=== PATIENT | male | born 1960 | race Caucasian/White ===

== ENCOUNTER 2024-02-28 16:30 | Inpatient (IN) | payer MEDICARE, SELFPAY ==
[2024-02-28 17:10] VITALS: BMI 43.7
[2024-02-28 18:01] VITALS: BP 135/72; PULSE 62; RESP 20; TEMP 36.6; O2SAT 93
--- NOTE | 2024-02-28 19:55 | HP.PCM_ITS ---
HPI - General General Date of Admission: 02/28/24 Date of Service: 03/02/24 Chief Complaint: Here for rehabilitation. HPI Narrative SAMIR MUÑOZ, is a 63 Male who presents with followin02/24/2024 [facility] ED with low back pain. Chronic low back pain, numbness/tingling from waist down. Numbness bilateral hands, urinary incontinence, multiple falls. Falling daily. Transfer to [facility]. 02/25/2024 Admit to [facility] MRI showed severe stenosis at L4-5 level. 02/25/2024 Ortho performed decompression laminectomy lumbar posterior. 02/26/2024 Pain controlled, Sebastian catheter for urinary retention. PT for acute rehab versus SNF. 02/26/2024 Renal ultrasound negative hydronephrosis. CPAP for LUIS. Zoloft, Seroquel for depression. Flomax, indwelling sebastian catheter for urinary retention 2/2 cauda equina, may take 4-6 months to recover. 02/27/2024 Constipated, enema given. Voiding trial tonight. 02/28/2024 Admit to TCU with debility, here for rehabilitation, strengthening, prior to discharge home alone. [facility] Medical History (Updated 02/28/24 @ 20:[address] Jeremiah Birmingham MD) Transient ischemic attack Obstructive sleep apnea Hyperlipidemia Hypogonadism Hypothyroidism Essential (primary) hypertension Hyperparathyroidism Type 2 diabetes mellitus with hyperglycemia Depression Tobacco abuse Chronic heart failure with preserved ejection fraction (HFpEF) Cauda equina syndrome Low back pain Debility Home Medications ?Medication ?Instructions ?Recorded ?Last Taken ?Type albuterol sulfate 90 mcg/actuation 2 puff inhalation Q6H wheezing 02/28/24 Unknown History aerosol inhaler celecoxib 100 mg capsule 100 mg PO BID inflammation 02/28/24 02/28/24 History cholecalciferol (vitamin D3) 50 50 mcg PO DAILY supplement 02/28/24 02/28/24 History mcg (2,000 unit) capsule colchicine 0.6 mg tablet 0.6 mg PO .hs gout 02/28/24 02/27/24 History cyclobenzaprine 10 mg tablet 10 mg PO TID PRN muscle spasm 02/28/24 02/25/24 History docusate sodium 100 mg capsule 100 mg PO BID constipation 02/28/24 02/28/24 History fluticasone propionate 50 1 spray intranasal BID allergy 02/28/24 Unknown History mcg/actuation nasal spray,suspension folic acid 1 mg tablet 1 mg PO DAILY supplement 02/28/24 Unknown History furosemide 20 mg tablet 20 mg PO DAILY diuretic 02/28/24 02/25/24 History furosemide 40 mg tablet 40 mg PO DAILY diuretic 02/28/24 Unknown History gabapentin 300 mg capsule 600 mg PO BID nerve pain 02/28/24 02/28/24 History levothyroxine 50 mcg tablet 50 mcg PO DAILY thyroid 02/28/24 02/28/24 History montelukast 10 mg tablet 10 mg PO QHS allergies 02/28/24 02/27/24 History mupirocin 2 % topical ointment 1 applic topical BID topical 02/28/24 02/27/24 History oxycodone 5 mg tablet 5 mg PO Q4H PRN pain 02/28/24 02/27/24 History polyethylene glycol 3350 17 17 g PO DAILY PRN constipation 02/28/24 Unknown History gram/dose oral powder (Miralax) quetiapine 25 mg tablet 25 mg PO QHS sleep 02/28/24 02/27/24 History ropinirole 4 mg tablet 4 mg PO QHS tremors 02/28/24 02/27/24 History sertraline 100 mg tablet 200 mg PO DAILY depression 02/28/24 02/28/24 History simethicone 80 mg chewable tablet 80 mg PO Q6H PRN gas 02/28/24 Unknown History (Gas Relief (simethicone)) tamsulosin 0.4 mg capsule 0.4 mg PO QHS urine retention 02/28/24 02/27/24 History thiamine HCl (vitamin B1) 100 mg 100 mg PO DAILY supplement 02/28/24 02/28/24 History tablet Allergy/AdvReac Type Severity Reaction Status Date / Time Seasonal Allergies: Uncoded Allergy Intermediate Itching Verified 02/28/24 17:54 bupropion (From Wellbutrin) Allergy Unknown inolerance Verified 02/28/24 17:54 duloxetine (From Cymbalta) Allergy Unknown Other Verified 02/28/24 17:54 haloperidol (From Haldol) Allergy Unknown intolerance Verified 02/28/24 17:54 Family History (Updated 02/28/24 @ 20:[address] Jeremiah Birmingham MD) Father Myocardial infarction at 38. Mother Osteoarthritis Surgical History (Updated 02/28/24 @ 20:[address] Jeremiah Birmingham MD) History of tonsillectomy and adenoidectomy History of nasal septoplasty History of rotator cuff surgery History of sinus surgery History of foot surgery History of lumpectomy of left breast History of parathyroidectomy History of ankle surgery Social History (Updated 02/28/24 @ 20:[address] Jeremiah Birmingham MD) household members: none Smoking Status: Former smoker Electronic Cigarette Use: with nicotine alcohol intake: former details: Sober. substance use type: former substance user Date of last use: Everything, marijuana and crack/cocaine ROS Constitutional Constitutional: Reports weakness; Denies chills, fever(s) or weight gain ENT HEENT: Denies headache(s), nasal congestion or nasal discharge Cardiovascular Cardiovascular: Denies chest pain or palpitations Respiratory/Chest Respiratory/Chest: Denies cough, excessive phlegm production or shortness of breath with exertion Gastrointestinal Gastrointestinal: Denies abdominal pain, nausea or vomiting Genitourinary Genitourinary: Denies dysuria Musculoskeletal Musculoskeletal: Denies joint pain or joint swelling Integumentary Integumentary: Denies rash or wounds Neurologic Neurologic: Reports weakness; Denies focal weakness, numbness or tingling Psychiatric Psychiatric: Denies anxiety, auditory hallucinations, depression, homicidal ideation or suicidal ideation Vital Signs Vital Signs Vital Signs: 02/28/24 17:10 02/28/24 18:01 Temperature 97.8 F Temperature Source Temporal Pulse Rate 62 Pulse Rhythm Regular Pulse Strength Normal (2+) Respiratory Rate 20 H Respiratory Effort Normal Non-Labored Respiratory Depth Normal Respiratory Pattern Normal Blood Pressure 135/72 H Blood Pressure Mean 93 Blood Pressure Source Monitor Blood Pressure Position Semi-Fowlers Blood Pressure Location Left Arm Pulse Ox 93 Oxygen Delivery Method Nasal Cannula Nasal Cannula Oxygen Flow Rate (L/min) 3 2 Weight Weight: 146.42 kg Body Mass Index (BMI) 43.7 Physical Exam Const alert General Appearance: cooperative HEENT normocephalic Eyes PERRL and EOMs intact bilaterally Neck supple, no JVD and no carotid bruits Resp normal respiratory effort, normal air movement and clear to auscultation bilaterally Cardio regular rate and regular rhythm GI normal to inspection, nondistended, normoactive bowel sounds, non-tender and non-distended Bladder / Kidney Exam: catheter in place urethral Extremity normal capillary refill General Extremity: Negative for edema Skin no rashes or lesions noted General Skin Exam: no breakdown Neuro moves all extremities Neuro Narrative: Weakness all 4 extremities. Motor Exam: general weakness Psych affect normal Appearance: appropriate Results Lab / Micro Data 03/02/24 06:17 03/02/24 06:17 Assessment & Plan Assessment/Plan (1) Debility: (2) Low back pain: (3) Cauda equina syndrome: (4) Chronic heart failure with preserved ejection fraction (HFpEF): (5) Tobacco abuse: (6) Depression: (7) Type 2 diabetes mellitus with hyperglycemia: (8) Hyperparathyroidism: (9) Essential (primary) hypertension: (10) Hypothyroidism: (11) Hypogonadism: (12) Hyperlipidemia: (13) Obstructive sleep apnea: (14) Transient ischemic attack: PLAN: Plan 63 year old male with below past medical history hospitalized for cauda equina syndrome, underwent lumbar posterior decompression laminectomy 02/25/2024, postoperative course complicated by urinary retention requiring sebastian catheter, constipation, admitted to TCU with debility, here for rehabilitation, strengthening, prior to discharge home alone. * Debility - PT/OT. * Pain - Tylenol 1000mg q8, Oxycodone 5mg q4 prn pain (4-10). * Bowel - Miralax 17gm daily, senna/colace 2 tablets bid, Magnesium citrate 300ml daily prn. * Adult immunization - Administer pneumonia vaccine, covid vaccine, flu vaccine as appropriate. * DVT prophylaxis - Lovenox 40mg sc daily. * Asthma - Singulair 10mg daily, Albuterol 2 puffs q4 prn. * Osteoarthritis - Celebrex 100mg bid. * Vitamin D deficiency - D3 50mcg daily. * Gout - Colchicine 0.6m5 qhs. * Muscle spasm - Flexeril 10mg tid prn. * Allergic rhinitis - Flonase 1 spray nasal bid. * Alcohol use - Folic acid 1mg daily, Thiamine 100mg daily. * chronic HFpEF - Fuorsemide 40mg daily. * Neuropathic pain - Gabapentin 600mg bid. * Hypothyroidism - Levothyroxine 50mcg daily. * Skin irritation - Bactroban topical bid. * Depression - Sertraline 200mg daily, Seroquel 25mg qhs, stable chronic ocean transportation intermediary use, GDR not recommended. * Restless leg syndrome - Requip 4mg qhs or formulary equivalent. * Gas - Simethicone 80mg q6 prn. * Urinary retention - Tamsulosin 0.4mg qhs, indwelling sebastian catheter, voiding trials, but if related to cauda equina, may take 4 to 6 months to resolve.
[2024-02-28] MEDS: oxyCODONE 5 MG Tablet PO (21:10)
[2024-02-28 21:30] VITALS: O2SAT 92
[2024-02-28] MEDS: Gabapentin 600 MG Tablet PO (23:05)
[2024-02-28] MEDS: Fluticasone 0.05% 1 SPRAY NASAL.SRY NASAL (23:07)
[2024-02-28] MEDS: Celecoxib 100 MG Capsule PO (23:08)
[2024-02-28] MEDS: Pramipexole Di-HCl 0.5 MG Tablet 1.5 MG PO (23:08)
[2024-02-28] MEDS: Montelukast 10 MG Tablet PO (23:09)
[2024-02-28] MEDS: Senna/Docusate Sodium 1 Tablet 2 TABLET PO (23:10)
[2024-02-28] MEDS: QUEtiapine 25 MG Tablet PO (23:10)
[2024-02-28] MEDS: Tamsulosin HCl 0.4 MG Capsule PO (23:10)
[2024-02-28] MEDS: Colchicine 0.6 MG TABLET PO (23:11)
[2024-02-28] MEDS: Acetaminophen 500 MG Tablet 1000 MG PO (23:12)
[2024-02-28 23:18] VITALS: BP 138/70; PULSE 61
[2024-02-29] MEDS: cycloBENZAPRine HCl 10 MG Tablet PO (02:36)
[2024-02-29] MEDS: Acetaminophen 500 MG Tablet 1000 MG PO ×2 (05:28→22:06)
[2024-02-29] MEDS: Levothyroxine 50 MCG Tablet PO (05:29)
[2024-02-29] MEDS: oxyCODONE 5 MG Tablet PO ×3 (05:39→22:21)
[2024-02-29 05:40] VITALS: O2SAT 92
--- NOTE | 2024-02-29 05:43 | NURSING ---
Addendum entered by Marly Coulter 02/29/24 06:41: Resident would benefit from the side rails on a bariatric bed for improved positioning as w/ current bed BUE dangle over the bed and BLE frequently abduct. Original Note: One vape pen confiscated and placed in med room. Resident informed [facility] is a vape and smoke free facility. Alert and oriented x 2, experiences difficulty identifying place. Will need POA to sign admission papers. Resident would also benefit from a bariatric bed w/ an air mattress to ease positioning and care provided per staff d/t ht, BMI, and pain. Frequently slides down in bed and appeared to have hypnic jerks throughout the night.
[2024-02-29 06:37] LABS: Bedside Glucose 110 mg/dL (74-106)
[2024-02-29] MEDS: Polyethylene Glycol 3350 17 GM PACKET PO (08:06)
[2024-02-29] MEDS: Senna/Docusate Sodium 1 Tablet 2 TABLET PO ×2 (08:07→22:06)
[2024-02-29] MEDS: Folic Acid 1 MG Tablet PO (08:08)
[2024-02-29] MEDS: Sertraline 100 MG Tablet 200 MG PO (08:10)
[2024-02-29] MEDS: Thiamine Hydrochloride 100 MG Tablet PO (08:10)
[2024-02-29] MEDS: Furosemide 40 MG Tablet PO (08:11)
[2024-02-29] MEDS: Celecoxib 100 MG Capsule PO ×2 (08:11→22:07)
[2024-02-29] MEDS: Cholecalciferol (VIT D3) 25 MCG TABLET (1,000 UNITS) 50 MCG PO (08:12)
[2024-02-29] MEDS: Fluticasone 0.05% 1 SPRAY NASAL.SRY NASAL ×2 (08:13→22:07)
[2024-02-29] MEDS: Gabapentin 600 MG Tablet PO ×2 (08:26→22:21)
--- NOTE | 2024-02-29 08:34 | NURSING ---
Order for Bactroban ointment per [facility] is for and open or draining wounds only. Resident does not have any open wounds except surgical incision to low back.
[2024-02-29 08:36] VITALS: BP 115/69; PULSE 62; O2SAT 94
--- NOTE | 2024-02-29 09:04 | NURSING ---
PT SPITTING UP THICK CLEAR PHLEUM AND COUGHING WHEN EATING. PT IS SITTING UP IN BED. ASKED PT IF HE DOES THIS OFTEN,PT STATED NO. SPEECH CONSULT IN.
[2024-02-29 09:19] LABS: Absolute Neutrophil Count 2.8 X10^3/uL (2.0-7.7); Basophil# 0.02 X10^3/uL; Basophil% 0.4 % (0-1); Eosinophil# 0.29 X10^3/uL; Eosinophils% 6.4 % (0-5); Hematocrit 35.2 % (40-54); Hemoglobin 11.3 g/dL (13.0-16.5); Mean Corp Hgb Conc 32.1 g/dL (32-36); Mean Corpuscular Hgb 31.4 pg (27.0-32.0); Mean Corpuscular Volume 97.8 fL (80-94); Monocyte# 0.37 X10^3/uL; Monocyte% 8.1 % (0-10); NRBC Flagged by Analyzer 0 % (0-5); Neutrophil # 2.83 X10^3/uL (2.7-7.7); Neutrophil % 62.2 % (47-70); Platelet Count 112 K/mm3 (150-450); RBC Distribution Width CV 15.1 % (11.6-14.6); RBC Distribution Width SD 54.4 fl (35.1-43.9); White Blood Count 4.6 K/mm3 (4.4-11.0)
[2024-02-29 09:36] LABS: Anion Gap 4 (5-15); BUN 17 mg/dL (7-18); BUN/Creat Ratio 19.9 RATIO (10-20); Calcium,Total 8.3 mg/dL (8.5-10.1); Chloride 104 mmol/L (98-107); Creatinine, Serum 0.85 mg/dL (0.70-1.30); EST Glomerular Filtration Rate 96 mL/min (>60); Est Glom Filt Rate - Afr Amer 116 mL/min (>60); Estimated Creatinine Clearance 128.83 ml/min; Glucose 161 mg/dL (74-106); Sodium Level 140 mmol/L (136-145)
[2024-02-29] MEDS: Enoxaparin 40 MG/0.4 ML Syringe SC (10:54)
[2024-02-29] MEDS: Albuterol IH (6.7 GM) 1 PUFF INHALER 2 PUFF INHALATION ×3 (10:56→22:07)
[2024-02-29] MEDS: Tuberculin,Purif.prot.deriv. 50 TU/ML Vial 0.1 ML ID (11:01)
--- NOTE | 2024-02-29 11:05 | NURSING ---
PT ACTED LIKE HE COULDN'T HOLD A FULL CONVERSATION WITH THIS NURSE AND COULDN'T GRAB ANY THING,THEN PHONE RANG AND PT WOKE RIGHT UP AND GRABBED PHONE AND HAD A FULL CONVERSATION WITH SOME ONE ON OTHER END WITH NO PROBLEM. WILL CONTINUE TO MONITOR. RN AWARE
[2024-02-29 15:00] VITALS: BP 146/72; PULSE 65; RESP 19; TEMP 36.2; O2SAT 98
[2024-02-29] MEDS: QUEtiapine 25 MG Tablet PO (22:06)
[2024-02-29] MEDS: Montelukast 10 MG Tablet PO (22:06)
[2024-02-29] MEDS: Tamsulosin HCl 0.4 MG Capsule PO (22:07)
[2024-02-29] MEDS: Pramipexole Di-HCl 0.5 MG Tablet 1.5 MG PO (22:07)
[2024-02-29] MEDS: Colchicine 0.6 MG TABLET PO (22:07)
[2024-03-01 06:28] LABS: Bedside Glucose 129 mg/dL (74-106)
[2024-03-01] MEDS: Levothyroxine 50 MCG Tablet PO (06:40)
[2024-03-01] MEDS: Enoxaparin 40 MG/0.4 ML Syringe SC (06:40)
[2024-03-01] MEDS: Albuterol IH (6.7 GM) 1 PUFF INHALER 2 PUFF INHALATION ×4 (06:40→21:07)
[2024-03-01] MEDS: Acetaminophen 500 MG Tablet 1000 MG PO ×2 (06:40→14:32)
[2024-03-01] MEDS: Polyethylene Glycol 3350 17 GM PACKET PO (09:23)
[2024-03-01] MEDS: Fluticasone 0.05% 1 SPRAY NASAL.SRY NASAL ×2 (09:23→21:10)
[2024-03-01] MEDS: Sertraline 100 MG Tablet 200 MG PO (09:24)
[2024-03-01] MEDS: Celecoxib 100 MG Capsule PO ×2 (09:25→21:08)
[2024-03-01] MEDS: Folic Acid 1 MG Tablet PO (09:25)
[2024-03-01] MEDS: Thiamine Hydrochloride 100 MG Tablet PO (09:26)
[2024-03-01] MEDS: Furosemide 40 MG Tablet PO (09:26)
[2024-03-01] MEDS: Senna/Docusate Sodium 1 Tablet 2 TABLET PO ×2 (09:27→21:09)
[2024-03-01] MEDS: Cholecalciferol (VIT D3) 25 MCG TABLET (1,000 UNITS) 50 MCG PO (09:29)
[2024-03-01] MEDS: Gabapentin 600 MG Tablet PO ×2 (09:35→21:23)
[2024-03-01 09:37] VITALS: BP 131/63; PULSE 62
--- NOTE | 2024-03-01 11:45 | NURSING ---
THIS NURSE FINISH GIVEN MEDS TO PT AND ASKED PT IF THERE WAS ANY THING ELSE HE NEEDED. PT STATED I NEED TO BE ADJUSTED IN BED. DUE TO PT SIZE THIS NURSE HAD PT PRESS THE CALL COLEMAN AND WHEN ANSWERED PT STATED HE WANTED TO BE ADJUSTED IN BED. THIS NURSE STATED I WOULD BE BACK TO HELP AIDS. THIS NURSE WAS STANDING BY PT DOOR IN [place] I COULD HEAR PT GRUNTING AND THEN STATED AW THAT IS WHAT I WANTED. STEPPED IN ROOM AND ASKED PT IF HE NEEDED BED GIRON,PT STATED NO. AIDS WALKED IN AND PT STATED TO THEM HE HAD A BM. AIDS STARTED TO CLEAN PT UP AND PT STATED OH WAIT SHORTY NOT DONE AID ASKED IF HE WANTED ON BED GIRON TO FINISH AND PT STATED NO AND PRECEDED TO FINISH HAVING A BM WHILE LYING ON HIS SIDE. WHILE CLEANING PT UP PT PHONE RANG AND PT WANT HIS PHONE AND IT WAS GIVEN TO HIM AND PT STATED TO PERSON ON OTHER END HI YA SHORTY GETTING MY BUTT WIPED RIGHT KNOW BUT GO A HEAD I CAN TALK. RN AWARE
[2024-03-01 14:21] VITALS: BP 135/69; PULSE 55; RESP 16; TEMP 36.6; O2SAT 93
[2024-03-01 14:35] VITALS: PULSE 56; RESP 18; O2SAT 93
[2024-03-01] MEDS: Tamsulosin HCl 0.4 MG Capsule PO (21:08)
[2024-03-01] MEDS: Colchicine 0.6 MG TABLET PO (21:08)
[2024-03-01] MEDS: Pramipexole Di-HCl 0.5 MG Tablet 1.5 MG PO (21:09)
[2024-03-01] MEDS: QUEtiapine 25 MG Tablet PO (21:09)
[2024-03-01] MEDS: Montelukast 10 MG Tablet PO (21:10)
[2024-03-01] MEDS: Menthol/Lanolin/Calamine/Znox 113 GM Tube 1 APPLIC TOPICAL (21:23)
[2024-03-01] MEDS: oxyCODONE 5 MG Tablet PO (21:24)
[2024-03-02] MEDS: Enoxaparin 40 MG/0.4 ML Syringe SC (06:06)
[2024-03-02] MEDS: Albuterol IH (6.7 GM) 1 PUFF INHALER 2 PUFF INHALATION ×3 (06:06→23:20)
[2024-03-02] MEDS: Levothyroxine 50 MCG Tablet PO (06:07)
[2024-03-02 06:28] LABS: Bedside Glucose 102 mg/dL (74-106)
[2024-03-02 06:48] LABS: Absolute Neutrophil Count 3.5 X10^3/uL (2.0-7.7); Basophil# 0.02 X10^3/uL; Basophil% 0.4 % (0-1); Eosinophil# 0.33 X10^3/uL; Eosinophils% 6.2 % (0-5); Hematocrit 36.9 % (40-54); Hemoglobin 11.9 g/dL (13.0-16.5); Lymphocyte % 18.7 % (19-41); Mean Corp Hgb Conc 32.2 g/dL (32-36); Mean Corpuscular Hgb 31.2 pg (27.0-32.0); Mean Corpuscular Volume 96.6 fL (80-94); Mean Platelet Vol. 11.4 fl (6.2-12.0); Monocyte# 0.45 X10^3/uL; Monocyte% 8.4 % (0-10); NRBC Flagged by Analyzer 0 % (0-5); Neutrophil # 3.51 X10^3/uL (2.7-7.7); Neutrophil % 65.6 % (47-70); Platelet Count 119 K/mm3 (150-450); RBC Distribution Width SD 52.7 fl (35.1-43.9); Red Blood Count 3.82 M/mm3 (4.6-6.2); White Blood Count 5.4 K/mm3 (4.4-11.0)
[2024-03-02 07:00] LABS: Anion Gap 5 (5-15); BUN 20 mg/dL (7-18); BUN/Creat Ratio 28.4 RATIO (10-20); Calcium,Total 8.7 mg/dL (8.5-10.1); Chloride 104 mmol/L (98-107); EST Glomerular Filtration Rate 119 mL/min (>60); Est Glom Filt Rate - Afr Amer 144 mL/min (>60); Estimated Creatinine Clearance 136.89 ml/min; Glucose 116 mg/dL (74-106); Potassium 3.8 mmol/L (3.5-5.1); Sodium Level 139 mmol/L (136-145)
[2024-03-02 07:52] VITALS: O2SAT 92
[2024-03-02] MEDS: Sertraline 100 MG Tablet 200 MG PO (08:39)
[2024-03-02] MEDS: Celecoxib 100 MG Capsule PO ×2 (08:39→17:30)
[2024-03-02] MEDS: Thiamine Hydrochloride 100 MG Tablet PO (08:40)
[2024-03-02] MEDS: Furosemide 40 MG Tablet PO (08:40)
[2024-03-02] MEDS: Senna/Docusate Sodium 1 Tablet 2 TABLET PO ×2 (08:41→23:22)
[2024-03-02] MEDS: Polyethylene Glycol 3350 17 GM PACKET PO (08:42)
[2024-03-02] MEDS: Cholecalciferol (VIT D3) 25 MCG TABLET (1,000 UNITS) 50 MCG PO (08:43)
[2024-03-02] MEDS: Petrolatum 33% Tube 1 APPLIC TOPICAL ×2 (08:49→23:21)
[2024-03-02] MEDS: Menthol/Lanolin/Calamine/Znox 113 GM Tube 1 APPLIC TOPICAL ×2 (08:49→23:20)
[2024-03-02] MEDS: Gabapentin 600 MG Tablet PO ×2 (08:50→23:27)
[2024-03-02 08:56] VITALS: BP 128/75; PULSE 61; RESP 16; TEMP 36.3; O2SAT 91
--- NOTE | 2024-03-02 10:13 | NURSING ---
Clearance Rep Note; Activity Asset: Alison Carrillo is independent in his choice of daily activities. Per conversation during activity assessment he stated he is unable to attend activities at this time and would prefer in room activities only. He prefers not to have the telecommunication tower technician visits due to him being a Atheist. Staff will remind him of weekly activities and respect his right to say no.
--- NOTE | 2024-03-02 10:17 | NURSING ---
Addendum entered by Morena Figueroa 03/02/24 15:15: Call from Kimberlee who reports patient doesn't need to follow-up until the first week of March. She said the office will call to make appt. She said surgical dressing stays in place 5-7days then should be removed. Can then cover with DSD. Original Note: Left VM with Dr. Rolon's office asking for return call about orders for incision site care and follow-up appt.
[2024-03-02] MEDS: oxyCODONE 5 MG Tablet PO ×3 (10:23→20:15)
--- NOTE | 2024-03-02 11:12 | PHA.CONS_ITS ---
Documented by User: Franny Perez 03/02/24 12:06 TCU RX Drug Regimen Review Subjective/Objective Subjective/Objective: Subjective: TCU Admission. 63 YOM presented to outside ER with lower back pain, transferred to [facility]. Hospitalized for cauda equina syndrome, underwent lumbar posterior decompression laminectomy 02/25/2024, postoperative course complicated by urinary retention requiring sebastian catheter, constipation. Admitted to TCU with debility for strengthening and rehabilitation. Objective: Allergies Seasonal Allergies: Uncoded Allergy (Intermediate, Verified 02/28/24 17:54) Itching bupropion (From Wellbutrin) Allergy (Unknown, Verified 02/28/24 17:54) inolerance duloxetine (From Cymbalta) Allergy (Unknown, Verified 02/28/24 17:54) Other haloperidol (From Haldol) Allergy (Unknown, Verified 02/28/24 17:54) intolerance patient becomes extremely restless. Thrashing in bed. Current Medications Generic Name Dose Route Start Last Admin Trade Name Freq PRN Reason Stop Dose Admin Albuterol Sulfate 2 puff 02/29/24 12:00 03/02/24 06:06 Albuterol Ih (6.7 Gm) 1 Puff Inhaler INHALATION 2 puff 4X/DAY RICKY Administration Albuterol Sulfate 1 puff 02/29/24 08:21 Albuterol Ih (6.7 Gm) 1 Puff Inhaler INHALATION Q4H PRN PRN DYSPNEA/WHEEZING/SOB Calamine/Phenol 1 applic 03/01/24 22:00 03/02/24 08:49 Menthol/Lanolin/Calamine/Znox 113 Gm Tube TOPICAL 1 applic BID RICKY Administration Protocol Celecoxib 100 mg 02/28/24 22:00 03/02/24 08:39 Celecoxib 100 Mg Capsule PO 100 mg BID RICKY Administration Cholecalciferol 50 mcg 02/29/24 10:00 03/02/24 08:43 Cholecalciferol (Vit D3) 25 Mcg Tablet (1,000 Units) PO 50 mcg DAILY RICKY Administration Colchicine 0.6 mg 02/28/24 22:00 03/01/24 21:08 Colchicine 0.6 Mg Tablet PO 03/05/24 22:00 0.6 mg QHS RICKY Administration Cyclobenzaprine HCl 10 mg 02/28/24 18:20 02/29/24 02:36 Cyclobenzaprine Hcl 10 Mg Tablet PO 10 mg TID PRN PRN Administration spasms Enoxaparin Sodium 40 mg 02/29/24 06:00 03/02/24 06:06 Enoxaparin 40 Mg/0.4 Ml Syringe SC 40 mg DAILY@0600 RICKY Administration Fluticasone Propionate 1 spray 02/28/24 22:00 03/02/24 08:39 Fluticasone 0.05% 1 [place] Nasal.Sry NASAL Not Given BID RICKY Folic Acid 1 mg 02/29/24 08:00 03/01/24 09:25 Folic Acid 1 Mg Tablet PO 1 mg DAILYCM RICKY Administration Furosemide 40 mg 02/29/24 10:00 03/02/24 08:40 Furosemide 40 Mg Tablet PO 40 mg DAILY RICKY Administration Protocol Gabapentin 600 mg 02/28/24 22:00 03/02/24 08:50 Gabapentin 600 Mg Tablet PO 600 mg BID RICKY Administration Levothyroxine Sodium 50 mcg 02/29/24 06:00 03/02/24 06:07 Levothyroxine 50 Mcg Tablet PO 50 mcg 0600 RICKY Administration Magnesium Citrate 300 ml 02/28/24 20:24 Magnesium Citrate 300 Ml PO DAILY PRN Constipation Montelukast Sodium 10 mg 02/28/24 22:00 03/01/24 21:10 Montelukast 10 Mg Tablet PO 10 mg QHS [facility] Administration Multi-Ingredient Cream 1 applic 03/01/24 22:00 03/02/24 08:49 Petrolatum 33% Tube TOPICAL 1 applic BID [facility] Administration Protocol Oxycodone HCl 5 mg 02/28/24 20:18 03/02/24 10:23 Oxycodone 5 Mg Tablet PO 5 mg Q4H PRN PRN Administration Pain Score 4-10 or Pre PT/OT Polyethylene Glycol 17 gm 02/29/24 10:00 03/02/24 08:42 Polyethylene Glycol 3350 17 Gm Packet PO 17 gm DAILY RICKY Administration Pramipexole Dihydrochloride 1.5 mg 02/28/24 22:00 03/01/24 21:09 Pramipexole Di-Hcl 0.5 Mg Tablet PO 1.5 mg QHS RICKY Administration Quetiapine Fumarate 25 mg 02/28/24 22:00 03/01/24 21:09 Quetiapine 25 Mg Tablet PO 25 mg QHS RICKY Administration Protocol Senna/Docusate Sodium 2 tablet 02/28/24 22:00 03/02/24 08:41 Senna/Docusate Sodium 1 Tablet PO 2 tablet BID RICKY Administration Sertraline HCl 200 mg 02/29/24 10:00 03/02/24 08:39 Sertraline 100 Mg Tablet PO 200 mg DAILY RICKY Administration Simethicone 160 mg 02/29/24 08:16 Simethicone 80 Mg Chewable Tablet PO Q6H PRN PRN Gas Sodium Chloride 10 - 40 ml 02/28/24 17:23 0.9% Saline Lock 10 Ml Syringe IV UD PRN SALINE FLUSH Tamsulosin HCl 0.4 mg 02/28/24 22:00 03/01/24 21:08 Tamsulosin Hcl 0.4 Mg Capsule PO 0.4 mg QHS RICKY Administration Thiamine HCl 100 mg 02/29/24 08:00 03/02/24 08:40 Thiamine Hydrochloride 100 Mg Tablet PO 100 mg DAILYCM RICKY Administration Tuberculin PPD 0.1 ml 03/07/24 10:00 Tuberculin,Purif.Prot.Deriv. 50 Tu/Ml Vial ID 03/07/24 10:01 X1 ONE Problem List Transient ischemic attack (Acute) Obstructive sleep apnea (Acute) Hyperlipidemia (Acute) Hypogonadism (Acute) Hypothyroidism (Acute) Essential (primary) hypertension (Acute) Hyperparathyroidism (Acute) Type 2 diabetes mellitus with hyperglycemia (Acute) Depression (Acute) Tobacco abuse (Acute) Chronic heart failure with preserved ejection fraction (HFpEF) (Acute) Cauda equina syndrome (Acute) Low back pain (Acute) Debility (Acute) Vital Signs Temp Pulse Resp BP Pulse Ox O2 Del Method O2 Flow Rate 97.4 F L 61 16 128/75 H 91 Room Air 2 03/02/24 08:56 03/02/24 08:56 03/02/24 08:56 03/02/24 08:56 03/02/24 08:56 03/02/24 08:56 02/28/24 18:01 Oxygen Flow Rate (L/min) 2 Oxygen Delivery Method Room Air Weight: 146.42 kg Body Mass Index (BMI) 43.7 Sodium 139 mmol/L (136-145) 03/02/24 06:17 Potassium 3.8 mmol/L (3.5-5.1) 03/02/24 06:17 Chloride 104 mmol/L (98-107) 03/02/24 06:17 Carbon Dioxide 30.0 mmol/L (21.0-32.0) 03/02/24 06:17 Anion Gap 5 (5-15) 03/02/24 06:17 BUN 20 mg/dL (7-18) H 03/02/24 06:17 Creatinine 0.70 mg/dL (0.70-1.30) 03/02/24 06:17 Est GFR (MDRD) Af Amer 144 mL/min (>60) 03/02/24 06:17 Est GFR (MDRD) Non-Af 119 mL/min (>60) 03/02/24 06:17 BUN/Creatinine Ratio 28.4 RATIO (10-20) H 03/02/24 06:17 Glucose 116 mg/dL (74-106) H 03/02/24 06:17 Assessment/Plan: 1. Pain/osteoarthritis: celecoxib 100mg PO BIDCM and oxycodone 5mg PO Q4H PRN pain 4-10. Resident has had 5 doses of oxycodone for pain scores of 7-10 in the back. Please continue to monitor for increased pain, PRN usage, constipation, respiratory depression, S/S of bleeding, renal function and S/S of heart failure (BEERs medication, Celebrex). 2. Bowel: Miralax 17gm PO daily, senna/docusate 2T PO BID and magnesium citrate 300ML PO daily PRN constipation. Resident has not had any PRN doses. Please continue to monitor for constipation and PRN usage. Last documented bowel movement was 03/01. 3. DVT prophylaxis: enoxaparin 40mg SC daily. Please continue to monitor for S/S of bleeding/DVT, hemoglobin (11.9g/dL), platelets (last 119,000) and renal function. 4. HFpEF: furosemide 40mg PO daily. Please continue to monitor for swelling, renal function, potassium (last 3.8mmol/L). 5. Gout: colchicine 0.6mg PO QHS thru 03/05/24. Please continue to monitor for S/S of gout and renal function. 6. Hypothyroidism: levothyroxine 50mcg PO daily. Please consider ordering a TSH level as there is no history in the chart. Thanks. Please continue to monitor for S/S of hypo/hyperthyroidism. 7. Restless leg syndrome: pramipexole 1.5mg PO QHS. Please continue to monitor for S/S of RLS, drowsiness, dizziness and insomnia. 8. Muscle spasms: cyclobenzaprine 10mg PO TID PRN spasms. Resident has had 1 dos e. Please continue to monitor for dementia/delirium (BEERs medication), urinary retention (on Flomax), PRN usage and anticholinergic side effects (BEERs medication). 9. Urinary retention: tamsulosin 0.4mg PO QHS. Please continue to monitor BP (last 128/75) and urinary retention. 10. Gas: simethicone 160mg PO Q6H PRN gas. Resident has not used any doses. Please continue to monitor for PRN usage. 11. Asthma: montelukast 10mg PO daily, albuterol MDI 2 puff inhalation 4x/day and 1puff Q4H PRN dyspnea/wheezing. Resident has not used any PRN doses. Please continue to monitor for S/S of asthma, PRN usage and HR (last 61). 12. Allergic rhinitis: fluticasone 0.05% nasal spray 1 spray nasal BID. Please continue to monitor for S/S of allergies and nasal irritation. 13. Vitamin D deficiency: cholecalciferol 50mcg PO daily. Please consider ordering a vitamin D level as there is no level in the chart. Thanks. 14. Alcohol use: folic acid 1mg PO daily and thiamine 100mg PO daily. Please continue to monitor. 15. Skin irritation: Bactroban topical bid. Assessment/Plan for indications treated with psychotropic medications: 1. Depression: sertraline 200mg PO daily and quetiapine 25mg PO QHS. Please see physician note regarding GDR. Please continue to monitor for suicidal ideation (black box warning), falls/fractures (BEERs medication), dementia/delirium (BEERs medication), sodium (last 139mmol/L), fatigue, weight gain and drowsiness. 2. Neuropathic pain: gabapentin 600mg PO BID. GDR not appropriate as this medication is being used for neuropathy. Please continue to monitor for pain, confusion, renal function and falls/fractures (BEERs medication). Medical chart and medication regimen reviewed. The following medication irregularities or issues were identified: 1. Levothyroxine 50mcg PO daily. Please consider ordering a TSH level as there is no history in the chart. Thanks. 2. Cholecalciferol 50mcg PO daily. Please consider ordering a vitamin D level as there is no level in the chart. Thanks. Date Date of Note:: 03/02/24 Documented by User: Dr. Jeremiah Birmingham MD 03/02/24 13:03 TCU RX Drug Regimen Review Provider Comments Provider responsibility Provider Comments to Recommendations by Pharmacy: Agree
[2024-03-02] MEDS: Folic Acid 1 MG Tablet PO (11:55)
--- NOTE | 2024-03-02 20:17 | NURSING ---
Resident is speaking on the phone when this nurse entered room w/ Oxycodone as requested. Able to converse without any difficulty. In no acute distress. This nurse remained on the phone for a few minutes then this nurse verified name and birthdate w/ resident prior to administering Oxycodone per order. Reports pain to back but is unable to fully describe characteristics of pain. Will continue to monitor.
--- NOTE | 2024-03-02 23:00 | NURSING ---
audio visual specialist reports that resident continues to request a shower. Informed resident staff is unable to safely shower resident d/t impaired mobility. Continued education needed.
[2024-03-02] MEDS: Colchicine 0.6 MG TABLET PO (23:21)
[2024-03-02] MEDS: QUEtiapine 25 MG Tablet PO (23:23)
[2024-03-02] MEDS: Pramipexole Di-HCl 0.5 MG Tablet 1.5 MG PO (23:23)
[2024-03-02] MEDS: Tamsulosin HCl 0.4 MG Capsule PO (23:23)
[2024-03-02] MEDS: Montelukast 10 MG Tablet PO (23:24)
[2024-03-02] MEDS: cycloBENZAPRine HCl 10 MG Tablet PO (23:27)
[2024-03-02 23:28] VITALS: BP 139/70; PULSE 57
[2024-03-03] MEDS: Levothyroxine 50 MCG Tablet PO (05:48)
[2024-03-03] MEDS: Enoxaparin 40 MG/0.4 ML Syringe SC (05:48)
--- NOTE | 2024-03-03 05:53 | NURSING ---
Resident refused Albuterol MDI this am and Flonase Nasal [place] last hs. Reports taking the above medications only on an as needed basis at home.
[2024-03-03 06:40] LABS: Vitamin D,25 Hydroxy 40.9 ng/mL
[2024-03-03 06:44] LABS: Bedside Glucose 129 mg/dL (74-106)
[2024-03-03 06:58] VITALS: O2SAT 95
[2024-03-03] MEDS: oxyCODONE 5 MG Tablet PO ×3 (08:47→22:28)
[2024-03-03] MEDS: Menthol/Lanolin/Calamine/Znox 113 GM Tube 1 APPLIC TOPICAL ×2 (08:49→22:17)
[2024-03-03] MEDS: Polyethylene Glycol 3350 17 GM PACKET PO (08:50)
[2024-03-03] MEDS: Fluticasone 0.05% 1 SPRAY NASAL.SRY NASAL ×2 (08:50→22:16)
[2024-03-03] MEDS: Sertraline 100 MG Tablet 200 MG PO (08:51)
[2024-03-03] MEDS: Celecoxib 100 MG Capsule PO ×2 (08:51→17:33)
[2024-03-03] MEDS: Furosemide 40 MG Tablet PO (08:51)
[2024-03-03] MEDS: Cholecalciferol (VIT D3) 25 MCG TABLET (1,000 UNITS) 50 MCG PO (08:51)
[2024-03-03] MEDS: Petrolatum 33% Tube 1 APPLIC TOPICAL ×2 (08:52→22:16)
[2024-03-03] MEDS: Senna/Docusate Sodium 1 Tablet 2 TABLET PO ×2 (08:52→22:18)
[2024-03-03] MEDS: Folic Acid 1 MG Tablet PO (08:52)
[2024-03-03] MEDS: Thiamine Hydrochloride 100 MG Tablet PO (08:52)
[2024-03-03 08:59] VITALS: BP 137/75; PULSE 91; RESP 16; TEMP 36.1; O2SAT 96
[2024-03-03] MEDS: Gabapentin 600 MG Tablet PO ×2 (09:01→22:28)
[2024-03-03] MEDS: Albuterol IH (6.7 GM) 1 PUFF INHALER 2 PUFF INHALATION ×3 (13:02→22:20)
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
[2024-03-03 16:04] VITALS: BMI 41.3
--- NOTE | 2024-03-03 19:28 | NURSING ---
field assembly supervisor called this nurse , stated that pts friend called about pt having plane ticket tomorrow. The friend has be trying to talk to pt all day about it. field assembly supervisor gave this nurse flight information. Pt friend would not allow the field assembly supervisor to take down his name or transfer the phone call to the unit.
[2024-03-03 22:15] VITALS: BP 127/71; PULSE 66
[2024-03-03] MEDS: Colchicine 0.6 MG TABLET PO (22:17)
[2024-03-03] MEDS: Pramipexole Di-HCl 0.5 MG Tablet 1.5 MG PO (22:18)
[2024-03-03] MEDS: QUEtiapine 25 MG Tablet PO (22:19)
[2024-03-03] MEDS: Tamsulosin HCl 0.4 MG Capsule PO (22:19)
[2024-03-03] MEDS: Montelukast 10 MG Tablet PO (22:19)
--- NOTE | 2024-03-03 23:33 | NURSING ---
Resident has a rectangular cordless charging unit that he has been using to charge his phone. He notes that he will need to order a cord to connect to the unit to plug into the wall and is requesting the address of the hospital to have the item sent. Informed resident that maintenance will need to look at the charging unit per policy to assess for safety. This nurse explained this to resident multiple times as he repeatedly asked about ordering a cord. Offered to charge his phone at the charging station in the common area and resident is agreeable. Resident also had dried blood on his 2nd and 3rd fingertips to the rt hand after scratching what he thought was an ingrown hair in his teague to the right side of his face. Noted a small, pink area to the affected area noted prior that is not actively draining and without redness, warmth, or swelling.
[2024-03-04] MEDS: Enoxaparin 40 MG/0.4 ML Syringe SC (06:11)
[2024-03-04] MEDS: Levothyroxine 75 MCG Tablet PO (06:11)
--- NOTE | 2024-03-04 06:15 | NURSING ---
Resident's cell phone taken disconnected from charging station across from the nurses station and placed on overbed table.
[2024-03-04 06:52] LABS: Bedside Glucose 129 mg/dL (74-106)
[2024-03-04] MEDS: Gabapentin 600 MG Tablet PO ×2 (08:15→21:18)
[2024-03-04] MEDS: Menthol/Lanolin/Calamine/Znox 113 GM Tube 1 APPLIC TOPICAL ×2 (08:16→21:15)
[2024-03-04] MEDS: Petrolatum 33% Tube 1 APPLIC TOPICAL ×2 (08:16→21:16)
[2024-03-04] MEDS: Fluticasone 0.05% 1 SPRAY NASAL.SRY NASAL ×2 (08:16→21:17)
[2024-03-04] MEDS: Cholecalciferol (VIT D3) 25 MCG TABLET (1,000 UNITS) 50 MCG PO (08:17)
[2024-03-04] MEDS: Celecoxib 100 MG Capsule PO ×2 (08:17→17:03)
[2024-03-04] MEDS: Furosemide 40 MG Tablet PO (08:17)
[2024-03-04] MEDS: Sertraline 100 MG Tablet 200 MG PO (08:17)
[2024-03-04] MEDS: Thiamine Hydrochloride 100 MG Tablet PO (08:17)
[2024-03-04] MEDS: Polyethylene Glycol 3350 17 GM PACKET PO (08:18)
[2024-03-04] MEDS: Senna/Docusate Sodium 1 Tablet 2 TABLET PO ×2 (08:18→21:18)
[2024-03-04] MEDS: Folic Acid 1 MG Tablet PO (08:18)
[2024-03-04 08:22] VITALS: BP 127/69; PULSE 89; RESP 16; TEMP 37.1; O2SAT 91
--- NOTE | 2024-03-04 10:52 | CASEMGMT ---
Social Work IDT met with patient for care plan meeting. Left VM with mother to participate. Discussed patient's progress in PT/OT/SN. Educated to [facility] insurance with NRD 03/10, EDC 03/17 and continued stay is not guaranteed with each review. SW provided pt with written communication on insurance process and copay coverage during stay. Discussed pt likely needing an alternative DC plan, such as a SNF. Educated to SNF and financial liability. SW inquired about agreement to SNF, if needed. Pt stated, he would consider it, but wants to see how he improves in the next several days, as a SNF would be the last resort. SW agreed and will f/u with pt 03/09 for plans. Pt asked this worker to remain in room after team left. Pt inquired about this worker's conversation with his mother yesterday as pt's mother lectured him about being belligerent to staff. SW explained that prior to this worker completing pt's assessment, his mother phoned this worker wanting to provide pt's history and inquire about pt's progress. SW educated mother to insurance process and ELOS (refer to previous SW note on discussion). SW confirmed this worker did notify mother of staff documentation stating pt was belligerent and not being verbal respectful or appropriate to staff. SW reminded pt of discussion with this worker yesterday on treating staff with respect and staff will treat pt with respect. Pt became emotional and very apologetic, explaining that is not me. I would never treat someone like that. I just have been around 'the guys' all my life and that's just how I talk [with expletives]. Pt explained he is angry with himself and the lack of functional abilities and gets upset and frustrated. SW empathized with pt and expressed understanding to anger and decline. Explained staff empathizes with pt's condition and pain, and understanding pt will not be in the best mood, but there is a difference to being frustrated and in pain versus being disrespectful to staff. Pt expressed understanding and continued to apologize and requested this worker apologize to staff on his behalf. SW expressed appreciation for apology and recognition of behavior. SW encouraged pt be mindful of his words, tone, and the potential perception of this actions and words to others. Pt agreed. Chanell Deluna, ASSISTANT OFFICE MANAGER METAL RIVETING MACHINE OPERATOR
[2024-03-04] MEDS: Albuterol IH (6.7 GM) 1 PUFF INHALER 2 PUFF INHALATION (11:53)
[2024-03-04] MEDS: oxyCODONE 5 MG Tablet PO ×2 (17:01→21:32)
[2024-03-04] MEDS: Pramipexole Di-HCl 0.5 MG Tablet 1.5 MG PO (21:17)
[2024-03-04] MEDS: QUEtiapine 25 MG Tablet PO (21:17)
[2024-03-04] MEDS: Tamsulosin HCl 0.4 MG Capsule PO (21:18)
[2024-03-04] MEDS: Montelukast 10 MG Tablet PO (21:18)
[2024-03-04] MEDS: Colchicine 0.6 MG TABLET PO (21:19)
[2024-03-04 21:25] VITALS: BP 136/78; PULSE 57; RESP 18; TEMP 36.3; O2SAT 94
[2024-03-05 06:44] LABS: Bedside Glucose 130 mg/dL (74-106)
[2024-03-05] MEDS: oxyCODONE 5 MG Tablet PO ×3 (07:14→22:44)
[2024-03-05] MEDS: Levothyroxine 75 MCG Tablet PO (07:14)
[2024-03-05] MEDS: Enoxaparin 40 MG/0.4 ML Syringe SC (07:14)
[2024-03-05] MEDS: Furosemide 40 MG Tablet PO (08:08)
[2024-03-05] MEDS: Folic Acid 1 MG Tablet PO (08:08)
[2024-03-05] MEDS: Senna/Docusate Sodium 1 Tablet 2 TABLET PO ×2 (08:09→22:35)
[2024-03-05] MEDS: Cholecalciferol (VIT D3) 25 MCG TABLET (1,000 UNITS) 50 MCG PO (08:09)
[2024-03-05] MEDS: Fluticasone 0.05% 1 SPRAY NASAL.SRY NASAL ×2 (08:10→22:33)
[2024-03-05] MEDS: Celecoxib 100 MG Capsule PO ×2 (08:10→16:26)
[2024-03-05] MEDS: Menthol/Lanolin/Calamine/Znox 113 GM Tube 1 APPLIC TOPICAL ×2 (08:10→22:32)
[2024-03-05] MEDS: Thiamine Hydrochloride 100 MG Tablet PO (08:10)
[2024-03-05] MEDS: Sertraline 100 MG Tablet 200 MG PO (08:11)
[2024-03-05] MEDS: Polyethylene Glycol 3350 17 GM PACKET PO (08:11)
[2024-03-05] MEDS: Gabapentin 600 MG Tablet PO ×2 (08:16→22:43)
[2024-03-05] MEDS: Petrolatum 33% Tube 1 APPLIC TOPICAL ×2 (08:17→22:43)
[2024-03-05 08:21] VITALS: BP 122/77; PULSE 69
--- NOTE | 2024-03-05 11:24 | NURSING ---
Updated that a patient and a staff member tested covid positive. He did not want family notified.
[2024-03-05 14:45] VITALS: PULSE 53; RESP 18; O2SAT 94
[2024-03-05 15:29] VITALS: BP 136/76; PULSE 55; RESP 20; TEMP 35.9; O2SAT 94
--- NOTE | 2024-03-05 16:27 | CASEMGMT ---
Social Work SW conducted BIMS () and PHQ-9 (05/10) for MDS assessment. SW previously explored depression with pt and encourage counseling for ongoing assistance. Chanell Deluna, LEADER WRITER SOFTWARE VALIDATION ENGINEER
[2024-03-05] MEDS: Montelukast 10 MG Tablet PO (22:30)
[2024-03-05] MEDS: Pramipexole Di-HCl 0.5 MG Tablet 1.5 MG PO (22:31)
[2024-03-05] MEDS: Tamsulosin HCl 0.4 MG Capsule PO (22:31)
[2024-03-05] MEDS: Colchicine 0.6 MG TABLET PO (22:35)
[2024-03-05] MEDS: QUEtiapine 25 MG Tablet PO (22:35)
[2024-03-05] MEDS: cycloBENZAPRine HCl 10 MG Tablet PO (22:44)
[2024-03-06] MEDS: Enoxaparin 40 MG/0.4 ML Syringe SC (05:43)
[2024-03-06] MEDS: Levothyroxine 75 MCG Tablet PO (05:43)
[2024-03-06] MEDS: oxyCODONE 5 MG Tablet PO ×4 (05:48→22:44)
[2024-03-06 07:05] LABS: Bedside Glucose 136 mg/dL (74-106)
--- NOTE | 2024-03-06 08:41 | NURSING ---
Bottoming Machine Operator Note; MDS for 03/06/2024 Complete
[2024-03-06] MEDS: Polyethylene Glycol 3350 17 GM PACKET PO (09:16)
[2024-03-06] MEDS: Senna/Docusate Sodium 1 Tablet 2 TABLET PO ×2 (09:16→22:36)
[2024-03-06] MEDS: Furosemide 40 MG Tablet PO (09:16)
[2024-03-06] MEDS: Sertraline 100 MG Tablet 200 MG PO (09:16)
[2024-03-06] MEDS: Cholecalciferol (VIT D3) 25 MCG TABLET (1,000 UNITS) 50 MCG PO (09:17)
[2024-03-06] MEDS: Celecoxib 100 MG Capsule PO ×2 (09:17→18:11)
[2024-03-06] MEDS: Thiamine Hydrochloride 100 MG Tablet PO (09:17)
[2024-03-06] MEDS: Folic Acid 1 MG Tablet PO (09:18)
[2024-03-06] MEDS: Menthol/Lanolin/Calamine/Znox 113 GM Tube 1 APPLIC TOPICAL ×2 (09:18→22:38)
[2024-03-06] MEDS: Fluticasone 0.05% 1 SPRAY NASAL.SRY NASAL (09:18)
[2024-03-06] MEDS: Petrolatum 33% Tube 1 APPLIC TOPICAL ×2 (09:19→22:38)
[2024-03-06] MEDS: Gabapentin 600 MG Tablet PO ×2 (09:27→22:35)
[2024-03-06 09:39] LABS: Hemoglobin A1c 5.4 % (3.8-5.6)
[2024-03-06] MEDS: cycloBENZAPRine HCl 10 MG Tablet PO (15:41)
[2024-03-06] MEDS: Magnesium Citrate 300 ML PO (15:42)
[2024-03-06 16:00] VITALS: BP 138/71; PULSE 57; RESP 16; TEMP 36.2; O2SAT 95
[2024-03-06] MEDS: Pramipexole Di-HCl 0.5 MG Tablet 1.5 MG PO (22:35)
[2024-03-06] MEDS: QUEtiapine 25 MG Tablet PO (22:36)
[2024-03-06] MEDS: Montelukast 10 MG Tablet PO (22:36)
[2024-03-06] MEDS: Tamsulosin HCl 0.4 MG Capsule PO (22:36)
[2024-03-06 23:00] VITALS: PULSE 55; O2SAT 93
[2024-03-07] MEDS: Enoxaparin 40 MG/0.4 ML Syringe SC (06:14)
[2024-03-07] MEDS: Levothyroxine 75 MCG Tablet PO (06:15)
[2024-03-07] MEDS: oxyCODONE 5 MG Tablet PO ×4 (06:16→23:04)
[2024-03-07 06:52] LABS: Bedside Glucose 106 mg/dL (74-106)
[2024-03-07] MEDS: Senna/Docusate Sodium 1 Tablet 2 TABLET PO ×2 (10:04→23:05)
[2024-03-07] MEDS: Thiamine Hydrochloride 100 MG Tablet PO (10:04)
[2024-03-07] MEDS: Furosemide 40 MG Tablet PO (10:04)
[2024-03-07] MEDS: Sertraline 100 MG Tablet 200 MG PO (10:05)
[2024-03-07] MEDS: Magnesium Citrate 300 ML PO (10:05)
[2024-03-07] MEDS: Gabapentin 600 MG Tablet PO ×2 (10:05→23:04)
[2024-03-07] MEDS: Folic Acid 1 MG Tablet PO (10:05)
[2024-03-07] MEDS: Celecoxib 100 MG Capsule PO ×2 (10:05→17:36)
[2024-03-07] MEDS: Cholecalciferol (VIT D3) 25 MCG TABLET (1,000 UNITS) 50 MCG PO (10:05)
[2024-03-07] MEDS: Polyethylene Glycol 3350 17 GM PACKET PO (10:05)
[2024-03-07] MEDS: cycloBENZAPRine HCl 10 MG Tablet PO ×2 (10:05→17:36)
[2024-03-07] MEDS: Menthol/Lanolin/Calamine/Znox 113 GM Tube 1 APPLIC TOPICAL ×2 (10:10→23:06)
[2024-03-07] MEDS: Tuberculin,Purif.prot.deriv. 50 TU/ML Vial 0.1 ML ID (10:11)
[2024-03-07] MEDS: Petrolatum 33% Tube 1 APPLIC TOPICAL ×2 (10:13→23:06)
--- NOTE | 2024-03-07 12:02 | NURSING ---
Pt requesting Dulcolax suppository. Dr. [place] updated N.O. for Dulcolax Suppository 10mg PRN. Order read back.
[2024-03-07 15:51] VITALS: BP 118/62; PULSE 58; RESP 16; TEMP 36.5; O2SAT 92
[2024-03-07] MEDS: QUEtiapine 25 MG Tablet PO (23:04)
[2024-03-07] MEDS: Montelukast 10 MG Tablet PO (23:04)
[2024-03-07] MEDS: Pramipexole Di-HCl 0.5 MG Tablet 1.5 MG PO (23:04)
[2024-03-07] MEDS: Tamsulosin HCl 0.4 MG Capsule PO (23:04)
[2024-03-07] MEDS: Fluticasone 0.05% 1 SPRAY NASAL.SRY NASAL (23:05)
[2024-03-08] MEDS: Enoxaparin 40 MG/0.4 ML Syringe SC (05:32)
[2024-03-08] MEDS: Levothyroxine 75 MCG Tablet PO (05:32)
[2024-03-08] MEDS: oxyCODONE 5 MG Tablet PO ×4 (05:36→21:43)
[2024-03-08 06:34] LABS: Bedside Glucose 134 mg/dL (74-106)
--- NOTE | 2024-03-08 06:44 | NURSING ---
Old dressing to back removed. New dsd applied. Pt tolerated well.
[2024-03-08] MEDS: Celecoxib 100 MG Capsule PO ×2 (07:59→16:47)
[2024-03-08] MEDS: Folic Acid 1 MG Tablet PO (07:59)
[2024-03-08] MEDS: Thiamine Hydrochloride 100 MG Tablet PO (07:59)
[2024-03-08] MEDS: Cholecalciferol (VIT D3) 25 MCG TABLET (1,000 UNITS) 50 MCG PO (10:10)
[2024-03-08] MEDS: Gabapentin 600 MG Tablet PO ×2 (10:10→21:37)
[2024-03-08] MEDS: Furosemide 40 MG Tablet PO (10:11)
[2024-03-08] MEDS: Polyethylene Glycol 3350 17 GM PACKET PO (10:11)
[2024-03-08] MEDS: Senna/Docusate Sodium 1 Tablet 2 TABLET PO ×2 (10:11→21:38)
[2024-03-08] MEDS: Sertraline 100 MG Tablet 200 MG PO (10:11)
[2024-03-08] MEDS: Fluticasone 0.05% 1 SPRAY NASAL.SRY NASAL ×2 (10:12→21:36)
[2024-03-08] MEDS: Petrolatum 33% Tube 1 APPLIC TOPICAL ×2 (10:19→21:39)
[2024-03-08] MEDS: Menthol/Lanolin/Calamine/Znox 113 GM Tube 1 APPLIC TOPICAL ×2 (10:20→21:38)
[2024-03-08 14:55] VITALS: BP 135/71; PULSE 55; RESP 16; TEMP 35.8; O2SAT 94
[2024-03-08] MEDS: Pramipexole Di-HCl 0.5 MG Tablet 1.5 MG PO (21:35)
[2024-03-08] MEDS: Tamsulosin HCl 0.4 MG Capsule PO (21:36)
[2024-03-08] MEDS: Montelukast 10 MG Tablet PO (21:38)
[2024-03-08] MEDS: QUEtiapine 25 MG Tablet PO (21:38)
[2024-03-09] MEDS: Enoxaparin 40 MG/0.4 ML Syringe SC (05:25)
[2024-03-09] MEDS: Levothyroxine 75 MCG Tablet PO (05:25)
[2024-03-09] MEDS: cycloBENZAPRine HCl 10 MG Tablet PO (05:27)
[2024-03-09] MEDS: oxyCODONE 5 MG Tablet PO ×4 (05:28→22:50)
[2024-03-09 05:42] LABS: Absolute Lymphocyte Count 1.16 X10^3/uL (0.83-4.51); Absolute Neutrophil Count 4.5 X10^3/uL (2.0-7.7); Basophil# 0.05 X10^3/uL; Basophil% 0.8 % (0-1); Eosinophil# 0.29 X10^3/uL; Eosinophils% 4.4 % (0-5); Hematocrit 37.7 % (40-54); Hemoglobin 12.2 g/dL (13.0-16.5); Lymphocyte # 1.16 X10^3/ul (0.83-4.51); Lymphocyte % 17.7 % (19-41); Mean Corp Hgb Conc 32.4 g/dL (32-36); Mean Corpuscular Hgb 30.7 pg (27.0-32.0); Mean Platelet Vol. 11.7 fl (6.2-12.0); Monocyte# 0.48 X10^3/uL; Monocyte% 7.3 % (0-10); NRBC Flagged by Analyzer 0 % (0-5); Neutrophil # 4.53 X10^3/uL (2.7-7.7); Neutrophil % 69.2 % (47-70); Platelet Count 107 K/mm3 (150-450); RBC Distribution Width CV 13.9 % (11.6-14.6); RBC Distribution Width SD 49.2 fl (35.1-43.9); Red Blood Count 3.97 M/mm3 (4.6-6.2); White Blood Count 6.6 K/mm3 (4.4-11.0)
[2024-03-09 06:03] LABS: Anion Gap 4 (5-15); BUN 22 mg/dL (7-18); BUN/Creat Ratio 30.6 RATIO (10-20); Calcium,Total 8.5 mg/dL (8.5-10.1); Chloride 104 mmol/L (98-107); Creatinine, Serum 0.72 mg/dL (0.70-1.30); EST Glomerular Filtration Rate 117 mL/min (>60); Est Glom Filt Rate - Afr Amer 141 mL/min (>60); Estimated Creatinine Clearance 132.75 ml/min; Glucose 122 mg/dL (74-106); Potassium 3.9 mmol/L (3.5-5.1); Sodium Level 139 mmol/L (136-145)
[2024-03-09 06:40] LABS: Bedside Glucose 100 mg/dL (74-106)
[2024-03-09] MEDS: Petrolatum 33% Tube 1 APPLIC TOPICAL (08:40)
[2024-03-09] MEDS: Menthol/Lanolin/Calamine/Znox 113 GM Tube 1 APPLIC TOPICAL ×2 (08:40→21:05)
[2024-03-09] MEDS: Fluticasone 0.05% 1 SPRAY NASAL.SRY NASAL ×2 (08:43→21:05)
[2024-03-09] MEDS: Furosemide 40 MG Tablet PO (08:44)
[2024-03-09] MEDS: Thiamine Hydrochloride 100 MG Tablet PO (08:44)
[2024-03-09] MEDS: Cholecalciferol (VIT D3) 25 MCG TABLET (1,000 UNITS) 50 MCG PO (08:44)
[2024-03-09] MEDS: Folic Acid 1 MG Tablet PO (08:44)
[2024-03-09] MEDS: Senna/Docusate Sodium 1 Tablet 2 TABLET PO ×2 (08:45→21:05)
[2024-03-09] MEDS: Polyethylene Glycol 3350 17 GM PACKET PO (08:45)
[2024-03-09] MEDS: Sertraline 100 MG Tablet 200 MG PO (08:45)
[2024-03-09] MEDS: Gabapentin 600 MG Tablet PO ×2 (08:54→21:05)
[2024-03-09 08:58] VITALS: BP 116/66; PULSE 50
[2024-03-09] MEDS: Celecoxib 100 MG Capsule PO ×2 (10:24→17:42)
[2024-03-09 10:25] VITALS: PULSE 50; RESP 18; O2SAT 92
--- NOTE | 2024-03-09 11:27 | CASEMGMT ---
Social Work SW left with commercial real estate attorney requesting advanced directives. Vender returned call and faxed documents to this worker. Advanced directives placed on patient's chart. HARRIET Macedo
--- NOTE | 2024-03-09 14:39 | CASEMGMT ---
Social Work SW met with patient to discuss progress and DC plans. Pt remains a andre lift for transfers, unable to bear weight or walk. IDT recommending SNF placement as pt is unsafe to return home alone and would require a andre lift in the home, along with 04/02 assist. SW educated to insurance update 03/10 and continued stay is not guaranteed. Pt has not made significant progress from last review to current review, and it is unlikely insurance will approve additional days. Pt began to explain him having a new lift chair at home and accessible bathroom. SW explained the concern is not the home set up, it is pt's lack of functional ability and safety concerns with pt being home alone. Reiterated pt is a andre lift and needs assist with all daily tasks. Pt stated he just needs a few more days of therapy and then he can walk. SW sensitively refuted that is also unlikely given therapy progress thus far. Explained SNF is recommended and offered to provide pt with list of INN providers with quality and resource data via [employer]. Educated to financial liability and part B therapies and requiring 30 days of payment upon admission. Pt expressed understanding and accepted the SNF list from this worker. SW requested pt review this list and notify this worker the following day of choices. Pt agreed. SW will continue to follow. Chanell Deluna, MANAGER WATER INTERNET SOURCER
[2024-03-09 18:59] VITALS: BP 124/59; PULSE 62; RESP 18; TEMP 36.5; O2SAT 93
[2024-03-09] MEDS: Pramipexole Di-HCl 0.5 MG Tablet 1.5 MG PO (21:05)
[2024-03-09] MEDS: Montelukast 10 MG Tablet PO (21:05)
[2024-03-09] MEDS: Tamsulosin HCl 0.4 MG Capsule PO (21:05)
[2024-03-09] MEDS: QUEtiapine 25 MG Tablet PO (21:05)
[2024-03-10] MEDS: Enoxaparin 40 MG/0.4 ML Syringe SC (06:22)
[2024-03-10] MEDS: Levothyroxine 75 MCG Tablet PO (06:22)
[2024-03-10] MEDS: oxyCODONE 5 MG Tablet PO ×3 (06:24→17:57)
[2024-03-10 06:47] LABS: Bedside Glucose 107 mg/dL (74-106)
[2024-03-10 08:37] VITALS: BP 115/68; PULSE 62; RESP 17; TEMP 36.4; O2SAT 93
[2024-03-10] MEDS: Folic Acid 1 MG Tablet PO (08:41)
[2024-03-10] MEDS: Celecoxib 100 MG Capsule PO ×2 (08:41→16:12)
[2024-03-10] MEDS: Furosemide 40 MG Tablet PO (08:42)
[2024-03-10] MEDS: Menthol/Lanolin/Calamine/Znox 113 GM Tube 1 APPLIC TOPICAL ×2 (08:42→21:48)
[2024-03-10] MEDS: Fluticasone 0.05% 1 SPRAY NASAL.SRY NASAL ×2 (08:42→21:41)
[2024-03-10] MEDS: Thiamine Hydrochloride 100 MG Tablet PO (08:42)
[2024-03-10] MEDS: Cholecalciferol (VIT D3) 25 MCG TABLET (1,000 UNITS) 50 MCG PO (08:43)
[2024-03-10] MEDS: Polyethylene Glycol 3350 17 GM PACKET PO (08:43)
[2024-03-10] MEDS: Senna/Docusate Sodium 1 Tablet 2 TABLET PO ×2 (08:43→21:42)
[2024-03-10] MEDS: Sertraline 100 MG Tablet 200 MG PO (08:44)
[2024-03-10] MEDS: Gabapentin 600 MG Tablet PO ×2 (08:48→21:43)
--- NOTE | 2024-03-10 10:04 | MDS.RN ---
Information for the MDS was obtained from review of the clinical record, interview of resident, staff, and direct observation of resident?s care.
--- NOTE | 2024-03-10 11:30 | NURSING ---
RN to asses Vazquez Catheter insertion site. Patient has redness to Vazquez Catheter insertion site with a raised white area under Vazquez Catheter tube at the tip of patient's penis. With Vazquez Catheter care patient had mucus noted to area. Vazquez Catheter tube rubbing at the bottom of patient's penis causing skin irritation. Tubing repositioned. RN encouraged nursing staff to monitor site and to keep area clean and dry. Area is tender to patient. Will continue to monitor.
[2024-03-10] MEDS: cycloBENZAPRine HCl 10 MG Tablet PO ×2 (12:16→21:43)
[2024-03-10 13:35] VITALS: BMI 41.5
--- NOTE | 2024-03-10 14:13 | CASEMGMT ---
Social Work SW followed up with pt on SNF choices. Pt provided several choices, in no order: [facility], [facility], [facility], [facility], [facility] [place], [facility]. AUTUMN reiterated pt will need to pay OOP for room and board or apply for Medicaid. Pt stated he cannot pay OOP and would like to apply for [facility]. SW briefly inquired about finances. Pt will likely be eligible, however, pt's house is in a trust named to his research laboratory specialist. SW agreed to refer to [facility] and send referrals to SNFs. Pt appreciative. AUTUMN received phone call from mother requesting update on insurance coverage and pt's progress. SW reeducated to insurance NRD 03/10 and continued stay is not guaranteed with each review. Explained pt has not made significant progress, thus why IDT has made the recommendation for a SNF and pt agreed. Mother was surprised that pt agreed to a SNF and replied, good for you. AUTUMN explained it was pt's decision, and he is aware his needs cannot be met in the home after the discussion with this worker. Mother began to tell this worker how this is patient's fault from not taking care of himself for the past 5 years. SW redirected mother explaining pt currently is unable to use his limbs, struggles with use of his fingers and hands, and the past cannot be changed nor there is no definite reason if a change in trajectory over the past 5 years would have changed pt's current state. Mother then began sharing her own medical issues and that is why she hasn't been able to get on an airplane to visit pt, and has begun to sympathize with what pt is going through. AUTUMN redirected mother back to pt's care and reiterated the plan is for pt to DC to a SNF once insurance issues a DC, which SW will update mother once the outcome is known. Mother appreciative. Referral sent to [facility] via email. Referrals sent to SNFs via [facility]. HARRIET Macedo
--- NOTE | 2024-03-10 15:06 | CASEMGMT ---
Addendum entered by Chanell Deluna 03/10/24 16:47: All five SNFs denied. AUTUMN spoke with pt to update and request pt select additional facilities. alfredo screened pt. SW will continue to follow. Addendum entered by Chanell Deluna 03/10/24 15:14: [facility]. Original Note: Social Work Insurance issued LCD 03/12, DC 03/13. SW spoke with pt to notify and explain appeal rights. Pt agreed to DC and will await outcome from SNF referrals and [facility]. Currently SNFs cannot accept d/t Medicaid pending: [facility], [facility], and [facility]. Plan: DC 03/13 to SNF, intermediate, Medicaid pending HARRIET Macedo
[2024-03-10 21:30] VITALS: RESP 16
--- NOTE | 2024-03-10 21:33 | DS.PCM_ITS ---
Providers Date of Admission: 02/28/24 Primary Care Physician: Dr. Itz Navarrete MD Reason For Visit: CAUDA EQUINA COMPRESSION Diagnosis Discharge Diagnosis (1) Debility: Status: Acute Code(s): R53.81 - Other malaise (2) Low back pain: Status: Acute Code(s): M54.50 - Low back pain, unspecified (3) Cauda equina syndrome: Status: Acute Code(s): G83.4 - Cauda equina syndrome (4) Chronic heart failure with preserved ejection fraction (HFpEF): Status: Acute Code(s): I50.32 - Chronic diastolic (congestive) heart failure (5) Tobacco abuse: Status: Acute Code(s): Z72.0 - Tobacco use (6) Depression: Status: Acute Code(s): F32.A - Depression, unspecified (7) Type 2 diabetes mellitus with hyperglycemia: Status: Acute Code(s): E11.65 - Type 2 diabetes mellitus with hyperglycemia (8) Hyperparathyroidism: Status: Acute Code(s): E21.3 - Hyperparathyroidism, unspecified (9) Essential (primary) hypertension: Status: Acute Code(s): I10 - Essential (primary) hypertension (10) Hypothyroidism: Status: Acute Code(s): E03.9 - Hypothyroidism, unspecified (11) Hypogonadism: Status: Acute (12) Hyperlipidemia: Status: Acute Code(s): E78.5 - Hyperlipidemia, unspecified (13) Obstructive sleep apnea: Status: Acute Code(s): G47.33 - Obstructive sleep apnea (adult) (pediatric) (14) Transient ischemic attack: Status: Acute Code(s): G45.9 - Transient cerebral ischemic attack, unspecified Plan 63 year old male with below past medical history hospitalized for cauda equina syndrome, underwent lumbar posterior decompression laminectomy 02/25/2024, postoperative course complicated by urinary retention requiring sebastian catheter, constipation, admitted to TCU with debility, here for rehabilitation, strengthening, prior to discharge home alone. * Debility - PT/OT. * Pain - Tylenol 1000mg q8, Oxycodone 5mg q4 prn pain (4-10). * Bowel - Miralax 17gm daily, senna/colace 2 tablets bid, Magnesium citrate 300ml daily prn. * Adult immunization - Administer pneumonia vaccine, covid vaccine, flu vaccine as appropriate. * DVT prophylaxis - Lovenox 40mg sc daily. * Asthma - Singulair 10mg daily, Albuterol 2 puffs q4 prn. * Osteoarthritis - Celebrex 100mg bid. * Vitamin D deficiency - D3 50mcg daily. * Gout - Colchicine 0.6m5 qhs. * Muscle spasm - Flexeril 10mg tid prn. * Allergic rhinitis - Flonase 1 spray nasal bid. * Alcohol use - Folic acid 1mg daily, Thiamine 100mg daily. * chronic HFpEF - Fuorsemide 40mg daily. * Neuropathic pain - Gabapentin 600mg bid. * Hypothyroidism - Levothyroxine 50mcg daily. * Skin irritation - Bactroban topical bid. * Depression - Sertraline 200mg daily, Seroquel 25mg qhs, stable chronic half-way use, GDR not recommended. * Restless leg syndrome - Requip 4mg qhs or formulary equivalent. * Gas - Simethicone 80mg q6 prn. * Urinary retention - Tamsulosin 0.4mg qhs, indwelling sebastian catheter, voiding trials, but if related to cauda equina, may take 4 to 6 months to resolve. Medications at Discharge Home Medications celecoxib 100 mg capsule 100 mg PO BID inflammation 02/28/24 cholecalciferol (vitamin D3) 50 mcg (2,000 unit) capsule 50 mcg PO DAILY supplement 02/28/24 colchicine 0.6 mg tablet 0.6 mg PO .hs gout 02/28/24 cyclobenzaprine 10 mg tablet 10 mg PO TID PRN muscle spasm 02/28/24 fluticasone propionate 50 mcg/actuation nasal spray,suspension 1 spray intranasal BID allergy 02/28/24 folic acid 1 mg tablet 1 mg PO DAILY supplement 02/28/24 furosemide 40 mg tablet 40 mg PO DAILY diuretic 02/28/24 gabapentin 300 mg capsule 600 mg PO BID nerve pain 02/28/24 montelukast 10 mg tablet 10 mg PO QHS allergies 02/28/24 polyethylene glycol 3350 17 gram/dose oral powder (Miralax) 17 g PO DAILY PRN constipation 02/28/24 quetiapine 25 mg tablet 25 mg PO QHS sleep 02/28/24 ropinirole 4 mg tablet 4 mg PO QHS tremors 02/28/24 sertraline 100 mg tablet 200 mg PO DAILY depression 02/28/24 tamsulosin 0.4 mg capsule 0.4 mg PO QHS urine retention 02/28/24 thiamine HCl (vitamin B1) 100 mg tablet 100 mg PO DAILY supplement 02/28/24 albuterol sulfate 90 mcg/actuation aerosol inhaler 1 puff inhalation Q4H PRN PRN DYSPNEA/WHEEZING/SOB #0 grams 03/10/24 albuterol sulfate 90 mcg/actuation aerosol inhaler 2 puff inhalation 4X/DAY PRN SOB &/OR WHEEZING #0 grams 03/10/24 bisacodyl 10 mg rectal suppository 10 mg NC X1 PRN Constipation #0 ea 03/10/24 enoxaparin 40 mg/0.4 mL subcutaneous syringe 40 mg (0.4 mL) subcut DAILY@0600 #0 mL 03/10/24 levothyroxine 75 mcg tablet 75 mcg PO 0600 #0 tabs 03/10/24 magnesium citrate 300 ml PO DAILY PRN Constipation #0 mL 03/10/24 menthol 0.44 %-zinc oxide 20.6 % topical ointment (Calmoseptine) 1 applic topical BID #0 grams 03/10/24 oxycodone 5 mg tablet 5 mg PO Q4H PRN PRN Pain Score 4-10 Or Pre Pt/Ot 3 days #18 tabs 03/10/24 sennosides 8.6 mg-docusate sodium 50 mg tablet (Stimulant Laxative Plus) 2 tab PO BID #0 tabs 03/10/24 simethicone 80 mg chewable tablet 160 mg (2 x 80 mg) PO Q6H PRN PRN Gas #0 tabs 03/10/24 Hospital Course Operations - (See below.) Procedures None Summary of Care Provided Minutes Spent on Discharge: 35 Hospital Course: 63 year old male with below past medical history hospitalized for cauda equina syndrome, underwent lumbar posterior decompression laminectomy 02/25/2024, postoperative course complicated by urinary retention requiring sebastian catheter, constipation, admitted to TCU with debility, here for rehabilitation, strengthening, prior to discharge home alone. Discharge to SNF 03/13/2024, intermediate, Medicaid pending. Physical Exam Const alert General Appearance: cooperative HEENT normocephalic Eyes PERRL and EOMs intact bilaterally Neck supple, no JVD and no carotid bruits Resp normal respiratory effort, normal air movement and clear to auscultation bilaterally Cardio regular rate and regular rhythm GI normal to inspection, nondistended, normoactive bowel sounds, non-tender and non-distended Bladder / Kidney Exam: catheter in place urethral Extremity normal capillary refill General Extremity: Negative for edema Skin no rashes or lesions noted General Skin Exam: no breakdown Neuro moves all extremities Neuro Narrative: Weakness all 4 extremities. Motor Exam: general weakness Psych affect normal Appearance: appropriate Weight / BMI Weight Weight: 139 kg Body Mass Index (BMI) 41.5 ABG / Lab / Microbiology Data 03/09/24 05:12 03/09/24 05:12 Laboratory: Laboratory Results - last 24 hr 03/10/24 05:53: POC Glucose 107 H Microbiology: Microbiology 03/05/24 07:44 Nasal Secretion SARS-CoV-2 Antigen (Rapid) - Final D/C Instructions Discharge Diet: No restrictions Discharge Activity: Return to Normal Activity, May Shower and Use Walker Weight Bearing Status: Weight bearing as tolerated Call your doctor if you observe: Fever of 101 or Higher, Inability to urinate, Inability to have a bowel movement, Shortness of breath, Dizziness, Fainting spells, Swelling in the ankles, Chest pain and Uncontrolled pain Additional Instructions: Discharge to SNF 03/13/2024, intermediate, Medicaid pending. Please Follow Up With: Dr. Nixon newell When: As scheduled. Meaningful Use Info Meaningful Use Meaningful Use Diagnoses (Choose all that apply): None applicable Ischemic Stroke Statin Dosing Therapy Reference: STATIN DOSE THERAPY REFERENCE: * Patients > 75 years receive moderate or high dose statin therapy. * Patients 75 years or YOUNGER should receive HIGH intensity statin dose unless contraindicated. You will be required to document reason for non-treatment if statin daily dose does not meet guidelines. HIGH DOSE STATIN THERAPY DAILY Atorvastatin > than or = to 40 mg Rosuvastatin > than or = to 20 mg Amlodipine + Atorvastatin > than or = to 2.5/40 mg Ezetimibe + Simvastatin 10/80 mg Simvastatin 80mg Discharge Plan Admission Admit Date/Time: 02/28/24 16:30 Primary Reason for Your Visit: Debility. Attending Provider: Jeremiah Birmingham Chi Primary Care Provider: Itz Navarrete Instructions Additional Instructions / Restrictions: Discharge to SNF 03/13/2024, intermediate, Medicaid pending. Discharge Orders/Prescriptions Prescriptions: New bisacodyl 10 mg Suppository 10 mg NC X1 PRN (Reason: Constipation) Qty: 0 0RF albuterol sulfate 90 mcg/actuation Hfa Aerosol Inhaler 2 puff inhalation 4X/DAY PRN (Reason: SOB &/OR WHEEZING) Qty: 0 0RF albuterol sulfate 90 mcg/actuation Hfa Aerosol Inhaler 1 puff inhalation Q4H PRN PRN (Reason: DYSPNEA/WHEEZING/SOB) Qty: 0 0RF levothyroxine 75 mcg Tablet 75 mcg PO 0600 Qty: 0 0RF magnesium citrate Solution 300 ml PO DAILY PRN (Reason: Constipation) Qty: 0 0RF enoxaparin 40 mg/0.4 mL Syringe 40 mg subcut DAILY@0600 Qty: 0 0RF menthol-zinc oxide [Calmoseptine] 0.44-20.6 % Ointment 1 applic topical BID Qty: 0 0RF Protocol: *Topical Application Instructions APPLICATION INSTRUCTIONS: ALBERTO BUTTUCKS sennosides-docusate sodium [Stimulant Laxative Plus] 8.6-50 mg Tablet 2 tab PO BID Qty: 0 0RF oxycodone 5 mg Tablet 5 mg PO Q4H PRN PRN (Reason: Pain Score 4-10 Or Pre Pt/Ot) 3 Days Qty: 18 0RF simethicone 80 mg Tablet,Chewable 160 mg PO Q6H PRN PRN (Reason: Gas) Qty: 0 0RF Continued gabapentin 300 mg capsule 600 mg PO BID celecoxib 100 mg capsule 100 mg PO BID colchicine 0.6 mg tablet 0.6 mg PO .hs fluticasone propionate 50 mcg/actuation spray,suspension 1 spray INTRANASAL BID folic acid 1 mg tablet 1 mg PO DAILY furosemide 40 mg tablet 40 mg PO DAILY montelukast 10 mg tablet 10 mg PO QHS quetiapine 25 mg tablet 25 mg PO QHS ropinirole 4 mg tablet 4 mg PO QHS sertraline 100 mg tablet 200 mg PO DAILY tamsulosin 0.4 mg capsule 0.4 mg PO QHS cyclobenzaprine 10 mg tablet 10 mg PO TID PRN (Reason: muscle spasm) polyethylene glycol 3350 [Miralax] 17 gram/dose powder 17 g PO DAILY PRN (Reason: constipation) cholecalciferol (vitamin D3) 50 mcg (2,000 unit) capsule 50 mcg PO DAILY thiamine HCl (vitamin B1) 100 mg tablet 100 mg PO DAILY Discontinued mupirocin 2 % ointment 1 applic topical BID Rx Instructions: apply to affected areas albuterol sulfate 90 mcg/actuation HFA aerosol inhaler 2 puff inhalation Q6H furosemide 20 mg tablet 20 mg PO DAILY levothyroxine 50 mcg tablet 50 mcg PO DAILY docusate sodium 100 mg capsule 100 mg PO BID oxycodone 5 mg tablet 5 mg PO Q4H PRN (Reason: pain) simethicone [Gas Relief (simethicone)] 80 mg tablet,chewable 80 mg PO Q6H PRN (Reason: gas) Referrals / Follow Up: Itz Navarrete MD [Primary Care Provider] - Disposition Disposition (needs filled in before D/C Order can be placed): NonSkilled NH/Intermed Care
--- NOTE | 2024-03-10 21:39 | TREXTCAR_ITS ---
Diet Diet Order/Speech Therapy: 03/01/24 16:11 Diet: Cardiac: Calorie-Controlled Diet Comments: built up utensils How many daily calories?: 1999 calorie Routine Orders/Code Status Code Status: Full Code Wound(s) 1st, 2nd, & 3rd Digit L Foot: Wound Type: abrasions Toes on R foot: Wound Type: abrasions L knee: Wound Type: scab Dressing Change: Dry Sterile Dressing R knee: Wound Type: Abrasion Bilateral Legs: Wound Type: scattered scabs Surgical Incision: Wound Type: Surgical Incision Dressing Change: Dry Sterile Dressing Old drain site: Wound Type: Drain site Dressing Change: Dry Sterile Dressing LT UPPER ARM: Wound Type: Abrasion RT HIP: Wound Type: Abrasion Therapies Weight Bearing: Weight bearing as tolerated Extremity Affected:: Bilateral Lower and Bilateral Upper Physical Therapy: Eval and Treat Occupational Therapy: Eval and Treat Problem/Diagnosis (1) Debility: Status: Acute Code(s): R53.81 - Other malaise (2) Low back pain: Status: Acute Code(s): M54.50 - Low back pain, unspecified (3) Cauda equina syndrome: Status: Acute Code(s): G83.4 - Cauda equina syndrome (4) Chronic heart failure with preserved ejection fraction (HFpEF): Status: Acute Code(s): I50.32 - Chronic diastolic (congestive) heart failure (5) Tobacco abuse: Status: Acute Code(s): Z72.0 - Tobacco use (6) Depression: Status: Acute Code(s): F32.A - Depression, unspecified (7) Type 2 diabetes mellitus with hyperglycemia: Status: Acute Code(s): E11.65 - Type 2 diabetes mellitus with hyperglycemia (8) Hyperparathyroidism: Status: Acute Code(s): E21.3 - Hyperparathyroidism, unspecified (9) Essential (primary) hypertension: Status: Acute Code(s): I10 - Essential (primary) hypertension (10) Hypothyroidism: Status: Acute Code(s): E03.9 - Hypothyroidism, unspecified (11) Hypogonadism: Status: Acute (12) Hyperlipidemia: Status: Acute Code(s): E78.5 - Hyperlipidemia, unspecified (13) Obstructive sleep apnea: Status: Acute Code(s): G47.33 - Obstructive sleep apnea (adult) (pediatric) (14) Transient ischemic attack: Status: Acute Code(s): G45.9 - Transient cerebral ischemic attack, unspecified Plan 63 year old male with below past medical history hospitalized for cauda equina syndrome, underwent lumbar posterior decompression laminectomy 02/25/2024, postoperative course complicated by urinary retention requiring sebastian catheter, constipation, admitted to TCU with debility, here for rehabilitation, strengthening, prior to discharge home alone. * Debility - PT/OT. * Pain - Tylenol 1000mg q8, Oxycodone 5mg q4 prn pain (4-10). * Bowel - Miralax 17gm daily, senna/colace 2 tablets bid, Magnesium citrate 300ml daily prn. * Adult immunization - Administer pneumonia vaccine, covid vaccine, flu vaccine as appropriate. * DVT prophylaxis - Lovenox 40mg sc daily. * Asthma - Singulair 10mg daily, Albuterol 2 puffs q4 prn. * Osteoarthritis - Celebrex 100mg bid. * Vitamin D deficiency - D3 50mcg daily. * Gout - Colchicine 0.6m5 qhs. * Muscle spasm - Flexeril 10mg tid prn. * Allergic rhinitis - Flonase 1 spray nasal bid. * Alcohol use - Folic acid 1mg daily, Thiamine 100mg daily. * chronic HFpEF - Fuorsemide 40mg daily. * Neuropathic pain - Gabapentin 600mg bid. * Hypothyroidism - Levothyroxine 50mcg daily. * Skin irritation - Bactroban topical bid. * Depression - Sertraline 200mg daily, Seroquel 25mg qhs, stable chronic half-way use, GDR not recommended. * Restless leg syndrome - Requip 4mg qhs or formulary equivalent. * Gas - Simethicone 80mg q6 prn. * Urinary retention - Tamsulosin 0.4mg qhs, indwelling sebastian catheter, voiding trials, but if related to cauda equina, may take 4 to 6 months to resolve. Allergies/Procedures Done in Hospital Allergies Seasonal Allergies: Uncoded Allergy (Intermediate, Verified 02/28/24 17:54) Itching bupropion (From Wellbutrin) Allergy (Unknown, Verified 02/28/24 17:54) inolerance duloxetine (From Cymbalta) Allergy (Unknown, Verified 02/28/24 17:54) Other haloperidol (From Haldol) Allergy (Unknown, Verified 02/28/24 17:54) intolerance patient becomes extremely restless. Thrashing in bed. Procedures: None Type of Care/Length of Stay Estimated LOS: More Than 30 Days Type of Care Needed: Intermediate Rehab Potential: Fair Prognosis: Fair Additional Orders/Day of Discharge Additional Orders: part B therapies Day of Discharge: 03/13/24 Dietary and Speech Recommendations Dietitian Recommendations/Changes: Continue Cardiac: Calorie-Controlled 2000kcal diet for slight intentional weight loss as well as blood glucose control. Will order A1c per res request re: half-way glycemic control Follow Up Care Please follow up with your Primary Care Physician in: Dr. Navarrete Please Follow Up With: Dr. Nixon Rolon- ortho When: 1 week Please Follow Up With: Dr. Kris Gonzalez- urology When: 1 week Discharge Plan Admission Admit Date/Time: 02/28/24 16:30 Primary Reason for Your Visit: Debility. Attending Provider: Jeremiah Birmingham Chi Primary Care Provider: Itz Navarrete Instructions Additional Instructions / Restrictions: Discharge to SNF 03/13/2024, intermediate, Medicaid pending. Discharge Orders/Prescriptions Prescriptions: New bisacodyl 10 mg Suppository 10 mg [place] X1 PRN (Reason: Constipation) Qty: 0 0RF albuterol sulfate 90 mcg/actuation Hfa Aerosol Inhaler 2 puff inhalation 4X/DAY PRN (Reason: SOB &/OR WHEEZING) Qty: 0 0RF albuterol sulfate 90 mcg/actuation Hfa Aerosol Inhaler 1 puff inhalation Q4H PRN PRN (Reason: DYSPNEA/WHEEZING/SOB) Qty: 0 0RF levothyroxine 75 mcg Tablet 75 mcg PO 0600 Qty: 0 0RF magnesium citrate Solution 300 ml PO DAILY PRN (Reason: Constipation) Qty: 0 0RF enoxaparin 40 mg/0.4 mL Syringe 40 mg subcut DAILY@0600 Qty: 0 0RF menthol-zinc oxide [Calmoseptine] 0.44-20.6 % Ointment 1 applic topical BID Qty: 0 0RF Protocol: *Topical Application Instructions APPLICATION INSTRUCTIONS: ALBERTO BUTTUCKS sennosides-docusate sodium [Stimulant Laxative Plus] 8.6-50 mg Tablet 2 tab PO BID Qty: 0 0RF oxycodone 5 mg Tablet 5 mg PO Q4H PRN PRN (Reason: Pain Score 4-10 Or Pre Pt/Ot) 3 Days Qty: 18 0RF simethicone 80 mg Tablet,Chewable 160 mg PO Q6H PRN PRN (Reason: Gas) Qty: 0 0RF Continued gabapentin 300 mg capsule 600 mg PO BID celecoxib 100 mg capsule 100 mg PO BID colchicine 0.6 mg tablet 0.6 mg PO .hs fluticasone propionate 50 mcg/actuation spray,suspension 1 spray INTRANASAL BID folic acid 1 mg tablet 1 mg PO DAILY furosemide 40 mg tablet 40 mg PO DAILY montelukast 10 mg tablet 10 mg PO QHS quetiapine 25 mg tablet 25 mg PO QHS ropinirole 4 mg tablet 4 mg PO QHS sertraline 100 mg tablet 200 mg PO DAILY tamsulosin 0.4 mg capsule 0.4 mg PO QHS cyclobenzaprine 10 mg tablet 10 mg PO TID PRN (Reason: muscle spasm) polyethylene glycol 3350 [Miralax] 17 gram/dose powder 17 g PO DAILY PRN (Reason: constipation) cholecalciferol (vitamin D3) 50 mcg (2,000 unit) capsule 50 mcg PO DAILY thiamine HCl (vitamin B1) 100 mg tablet 100 mg PO DAILY Discontinued mupirocin 2 % ointment 1 applic topical BID Rx Instructions: apply to affected areas albuterol sulfate 90 mcg/actuation HFA aerosol inhaler 2 puff inhalation Q6H furosemide 20 mg tablet 20 mg PO DAILY levothyroxine 50 mcg tablet 50 mcg PO DAILY docusate sodium 100 mg capsule 100 mg PO BID oxycodone 5 mg tablet 5 mg PO Q4H PRN (Reason: pain) simethicone [Gas Relief (simethicone)] 80 mg tablet,chewable 80 mg PO Q6H PRN (Reason: gas) Referrals / Follow Up: Itz Navarrete MD [Primary Care Provider] - Disposition Disposition (needs filled in before D/C Order can be placed): NonSkilled NH/ Intermed Care
[2024-03-10] MEDS: QUEtiapine 25 MG Tablet PO (21:42)
[2024-03-10] MEDS: Montelukast 10 MG Tablet PO (21:42)
[2024-03-10] MEDS: Pramipexole Di-HCl 0.5 MG Tablet 1.5 MG PO (21:42)
[2024-03-10] MEDS: Tamsulosin HCl 0.4 MG Capsule PO (21:43)
[2024-03-11] MEDS: Levothyroxine 75 MCG Tablet PO (04:38)
[2024-03-11] MEDS: Enoxaparin 40 MG/0.4 ML Syringe SC (04:38)
[2024-03-11] MEDS: oxyCODONE 5 MG Tablet PO ×3 (04:38→15:19)
--- NOTE | 2024-03-11 04:56 | NURSING ---
Patient asked to have area on right cheek looked at. He has been picking at it and states it feels as if there is an ingrown hair. Area red, with some serous drainage, some firm areas noted around open area when palpated. Area cleansed, ATB ointment applied. Will continue to monitor.
[2024-03-11 06:29] LABS: Bedside Glucose 112 mg/dL (74-106)
[2024-03-11] MEDS: Celecoxib 100 MG Capsule PO ×2 (08:19→17:40)
[2024-03-11] MEDS: Fluticasone 0.05% 1 SPRAY NASAL.SRY NASAL ×2 (08:20→21:29)
[2024-03-11] MEDS: Folic Acid 1 MG Tablet PO (08:20)
[2024-03-11] MEDS: Thiamine Hydrochloride 100 MG Tablet PO (08:20)
[2024-03-11] MEDS: Gabapentin 600 MG Tablet PO ×2 (08:20→21:30)
[2024-03-11] MEDS: Furosemide 40 MG Tablet PO (08:20)
[2024-03-11] MEDS: Cholecalciferol (VIT D3) 25 MCG TABLET (1,000 UNITS) 50 MCG PO (08:21)
[2024-03-11] MEDS: Senna/Docusate Sodium 1 Tablet 2 TABLET PO ×2 (08:21→21:31)
[2024-03-11] MEDS: Sertraline 100 MG Tablet 200 MG PO (08:21)
[2024-03-11] MEDS: Polyethylene Glycol 3350 17 GM PACKET PO (08:21)
[2024-03-11] MEDS: Menthol/Lanolin/Calamine/Znox 113 GM Tube 1 APPLIC TOPICAL ×2 (08:28→21:29)
[2024-03-11 10:31] VITALS: BP 110/59; PULSE 72; RESP 18; TEMP 35.8; O2SAT 95
--- NOTE | 2024-03-11 15:22 | CASEMGMT ---
Addendum entered by Chanell Deluna 03/12/24 14:26: [facility] and [facility] are completing financial risk assessments with pt and waiting on approval from their corporate offices for official outcome. All other SNFs have denied. Addendum entered by Chanell Deluna 03/11/24 15:56: [facility] denied. Addendum entered by Chanell Deluna 03/11/24 15:55: [facility] denied. Received Medicaid pending Original Note: Social Work SW met with pt to discuss discharge plan. SW updated on SNF referrals and assist pt in additional SNF choices. Pt notified that the following facilities have denied pt: [facility], [facility], [facility], [facility] Referrals pending at: [facility] (SW left new message to check on acceptance) and [facility] (SW called Joan at [facility], case is being reviewed now) Pt providing additional preferences of facilities and referrals sent to the following: [facility], [facility], [facility], [facility]. SW will await determination from these facilities on acceptance. HUSSEIN Toscano
[2024-03-11] MEDS: cycloBENZAPRine HCl 10 MG Tablet PO (15:24)
--- NOTE | 2024-03-11 18:12 | NURSING ---
Patient request pain medicine be increased d/t uncontrolled pain to back. Dr. Birmingham made aware and oxycodone is increased to 10mg. Patient made aware.
[2024-03-11] MEDS: Tamsulosin HCl 0.4 MG Capsule PO (21:29)
[2024-03-11] MEDS: Pramipexole Di-HCl 0.5 MG Tablet 1.5 MG PO (21:30)
[2024-03-11] MEDS: QUEtiapine 25 MG Tablet PO (21:31)
[2024-03-11] MEDS: Montelukast 10 MG Tablet PO (21:32)
[2024-03-11] MEDS: oxyCODONE 5 MG Tablet 10 MG PO (21:48)
[2024-03-12] MEDS: Enoxaparin 40 MG/0.4 ML Syringe SC (06:02)
[2024-03-12] MEDS: Levothyroxine 75 MCG Tablet PO (06:02)
[2024-03-12 06:45] LABS: Bedside Glucose 103 mg/dL (74-106)
[2024-03-12] MEDS: Celecoxib 100 MG Capsule PO ×2 (08:43→17:31)
[2024-03-12] MEDS: Polyethylene Glycol 3350 17 GM PACKET PO (08:43)
[2024-03-12] MEDS: Senna/Docusate Sodium 1 Tablet 2 TABLET PO ×2 (08:44→22:40)
[2024-03-12] MEDS: Furosemide 40 MG Tablet PO (08:44)
[2024-03-12] MEDS: Thiamine Hydrochloride 100 MG Tablet PO (08:45)
[2024-03-12] MEDS: Sertraline 100 MG Tablet 200 MG PO (08:45)
[2024-03-12] MEDS: Cholecalciferol (VIT D3) 25 MCG TABLET (1,000 UNITS) 50 MCG PO (08:45)
[2024-03-12] MEDS: Folic Acid 1 MG Tablet PO (08:45)
[2024-03-12] MEDS: Menthol/Lanolin/Calamine/Znox 113 GM Tube 1 APPLIC TOPICAL ×2 (08:46→22:39)
[2024-03-12] MEDS: Gabapentin 600 MG Tablet PO ×2 (08:53→22:38)
[2024-03-12] MEDS: oxyCODONE 5 MG Tablet 10 MG PO ×4 (08:53→23:54)
[2024-03-12 09:03] VITALS: BP 128/75; PULSE 56
[2024-03-12 13:50] VITALS: PULSE 52; RESP 18; O2SAT 95
--- NOTE | 2024-03-12 14:33 | NURSING ---
PT CONTINUES TO YELLS OUT NURSE FOR EVERY THING. PT HAS BEEN SHOWN WHERE HIS CALL LIGHT IS AND HAVE ASKED PT CONTINUOUSLY WHERE DO YOU WANT YOUR CALL BUTTON SO YOU CAN REACH IT. AND STILL YELLS OUT.
--- NOTE | 2024-03-12 15:49 | CASEMGMT ---
Addendum entered by Chanell Deluna 03/13/24 10:54: After multiple communications to [facility] - PASRR is completed in HENS. Original Note: Social Work [facility] is able to accept the pt. [facility] spoke with pt and pt agreeable to transfer. AUTUMN sent DC paperwork to [facility] and requested pt be added to their facility psychologist list, that pt is agreeable to. Attempting to complete PASRR but discharging hospital has HENS document open, and cannot complete. AUTUMN attempting to contact case work aide to delete. [facility]UMN scheduled cot transport through [facility] for 1300. Plan: DC 03/13 to [facility] [place], Medicaid pending HARRIET Macedo
[2024-03-12 16:00] VITALS: BP 128/62; PULSE 54; RESP 17; TEMP 36.8; O2SAT 96
--- NOTE | 2024-03-12 16:14 | CASEMGMT ---
Social Work SW conducted BIMS () and PHQ-9 () completed for MDS assessment. Pt became tearful and expressed wanting this pain and suffering to go away. SW empathized with pt. Encouraged pt's ongoing recovery and the benefit of going to the SNF to get ongoing therapy services with the goal of returning home. SW reminded pt a psychologist will follow up with him at the SNF and pt can pursue ongoing counseling in the community. Pt expressed understanding and thanked this worker for ongoing assistance and support. Chanell Deluna, ACCELERATOR SYSTEMS DIRECTOR CLIENT ANALYST
[2024-03-12] MEDS: Fluticasone 0.05% 1 SPRAY NASAL.SRY NASAL (22:37)
[2024-03-12] MEDS: Pramipexole Di-HCl 0.5 MG Tablet 1.5 MG PO (22:39)
[2024-03-12] MEDS: cycloBENZAPRine HCl 10 MG Tablet PO (22:39)
[2024-03-12] MEDS: Tamsulosin HCl 0.4 MG Capsule PO (22:39)
[2024-03-12] MEDS: Montelukast 10 MG Tablet PO (22:40)
[2024-03-12] MEDS: QUEtiapine 25 MG Tablet PO (22:40)
[2024-03-13] MEDS: Enoxaparin 40 MG/0.4 ML Syringe SC (05:54)
[2024-03-13] MEDS: Levothyroxine 75 MCG Tablet PO (05:54)
[2024-03-13] MEDS: cycloBENZAPRine HCl 10 MG Tablet PO (06:01)
[2024-03-13] MEDS: oxyCODONE 5 MG Tablet 10 MG PO ×2 (06:01→13:48)
[2024-03-13 06:57] LABS: Bedside Glucose 142 mg/dL (74-106)
[2024-03-13] MEDS: Fluticasone 0.05% 1 SPRAY NASAL.SRY NASAL (08:55)
[2024-03-13] MEDS: Polyethylene Glycol 3350 17 GM PACKET PO (08:56)
[2024-03-13] MEDS: Menthol/Lanolin/Calamine/Znox 113 GM Tube 1 APPLIC TOPICAL (08:57)
[2024-03-13] MEDS: Sertraline 100 MG Tablet 200 MG PO (08:58)
[2024-03-13] MEDS: Folic Acid 1 MG Tablet PO (08:59)
[2024-03-13] MEDS: Celecoxib 100 MG Capsule PO (08:59)
[2024-03-13] MEDS: Cholecalciferol (VIT D3) 25 MCG TABLET (1,000 UNITS) 50 MCG PO (08:59)
[2024-03-13] MEDS: Senna/Docusate Sodium 1 Tablet 2 TABLET PO (08:59)
[2024-03-13] MEDS: Furosemide 40 MG Tablet PO (08:59)
[2024-03-13] MEDS: Thiamine Hydrochloride 100 MG Tablet PO (08:59)
[2024-03-13] MEDS: Gabapentin 600 MG Tablet PO (09:05)
[2024-03-13 09:08] VITALS: BP 119/60; PULSE 56
--- NOTE | 2024-03-13 13:00 | CASEMGMT ---
Social Work [facility] requesting LOC and Medicaid Lamine. AUTUMN faxed LOC to [facility]. alfredo Degroot sent OLEKSANDR lamine. AUTUMN sent Lamine to [facility]. Will await results, but [facility] can still accept pt as planned without results. Chanell Deluna, BAKER BREAD VENEER PRODUCTION MACHINE OPERATOR
[2024-03-13 15:45] VITALS: BP 108/60; PULSE 50; RESP 14; TEMP 36.1; O2SAT 94
--- NOTE | 2024-03-13 16:11 | NURSING ---
GAVE PT HIS MED ALERT AND VAP PEN BACK AT D/C.
== END 2024-03-13 14:40 | DRG 560 ==
PROVIDERS: Admitting Provider Family Medicine Geriatric Medicine; PCP Internal Medicine; Visit Provider Family Medicine Geriatric Medicine
DX: Z47.89 Encounter for other orthopedic aftercare (principal); I50.32 Chronic diastolic (congestive) heart failure; G83.4 Cauda equina syndrome; I11.0 Hypertensive heart disease with heart failure; E11.40 Type 2 diabetes mellitus with diabetic neuropathy, unspecified; G25.81 Restless legs syndrome; E03.9 Hypothyroidism, unspecified; F32.A Depression, unspecified; E55.9 Vitamin D deficiency, unspecified; E21.3 Hyperparathyroidism, unspecified; E78.5 Hyperlipidemia, unspecified; G47.33 Obstructive sleep apnea (adult) (pediatric); M10.9 Gout, unspecified; Z87.891 Personal history of nicotine dependence; R33.9 Retention of urine, unspecified; Z79.899 Other long term (current) drug therapy; Z79.51 Long term (current) use of inhaled steroids; Z79.890 Hormone replacement therapy
CPT/HCPCS: 36415; 80048; 82306; 82962; 83036; 84443; 85025; 87811; 92507; 92522; 97110; 97129; 97130; 97163; 97166; 97530; 97535; 97802

== ENCOUNTER → 2024-03-24 | Outpatient (REF) | payer MEDICARE, MEDICAID, SELFPAY ==
[2024-03-24 09:02] LABS: Hematocrit 39.5 % (40-54); Mean Corp Hgb Conc 32.9 g/dL (32-36); Mean Corpuscular Hgb 30.3 pg (27.0-32.0); Mean Corpuscular Volume 92.1 fL (80-94); Mean Platelet Vol. 12.3 fl (6.2-12.0); POSITIVE COUNT YES; Platelet Count 89 K/mm3 (150-450); RBC Distribution Width CV 12.6 % (11.6-14.6); RBC Distribution Width SD 42.5 fl (35.1-43.9); Red Blood Count 4.29 M/mm3 (4.6-6.2); White Blood Count 5.5 K/mm3 (4.4-11.0)
[2024-03-24 09:03] LABS: Scan Indicated on CBC? Y/N YES- FLAGS NOTED
[2024-03-24 09:18] LABS: Vitamin D,25 Hydroxy 38.2 ng/mL
[2024-03-24 09:37] LABS: Differential Comment SCANNED
[2024-03-24 09:48] LABS: Anion Gap 7 (5-15); BUN 16 mg/dL (7-18); BUN/Creat Ratio 19.9 RATIO (10-20); Calcium,Total 9.2 mg/dL (8.5-10.1); Chloride 109 mmol/L (98-107); EST Glomerular Filtration Rate 102 mL/min (>60); Est Glom Filt Rate - Afr Amer 124 mL/min (>60); Glucose 91 mg/dL (74-106); Potassium 2.9 mmol/L (3.5-5.1); Sodium Level 141 mmol/L (136-145)
[2024-03-24 09:51] LABS: Hemoglobin A1c 5.1 % (3.8-5.6)
== END ==
LOC: OLS.ACW300 05:00
PROVIDERS: PCP Internal Medicine; Visit Provider Family Medicine
DX: G83.4 Cauda equina syndrome (principal); R33.8 Other retention of urine; E03.9 Hypothyroidism, unspecified; E11.9 Type 2 diabetes mellitus without complications; E55.9 Vitamin D deficiency, unspecified
CPT/HCPCS: 36415; 80048; 82306; 83036; 84443; 85027

== ENCOUNTER → 2024-04-01 05:00 | Outpatient (REF) | payer MEDICARE, MEDICAID, SELFPAY ==
[2024-04-01 08:30] LABS: Hematocrit 39.7 % (40-54); Hemoglobin 12.6 g/dL (13.0-16.5); Mean Corp Hgb Conc 31.7 g/dL (32-36); Mean Corpuscular Hgb 29.6 pg (27.0-32.0); Mean Corpuscular Volume 93.2 fL (80-94); Mean Platelet Vol. 12.4 fl (6.2-12.0); POSITIVE COUNT YES; Platelet Count 87 K/mm3 (150-450); RBC Distribution Width CV 12.5 % (11.6-14.6); RBC Distribution Width SD 42.7 fl (35.1-43.9); Red Blood Count 4.26 M/mm3 (4.6-6.2); White Blood Count 4.8 K/mm3 (4.4-11.0)
[2024-04-01 08:34] LABS: Anion Gap 8 (5-15); BUN 15 mg/dL (7-18); BUN/Creat Ratio 17.6 RATIO (10-20); Chloride 106 mmol/L (98-107); Creatinine, Serum 0.85 mg/dL (0.70-1.30); EST Glomerular Filtration Rate 95 mL/min (>60); Est Glom Filt Rate - Afr Amer 116 mL/min (>60); Glucose 103 mg/dL (74-106); Potassium 4.5 mmol/L (3.5-5.1); Sodium Level 141 mmol/L (136-145)
== END ==
LOC: OLS.ACW300 05:00
PROVIDERS: PCP Internal Medicine; Visit Provider Family Medicine
DX: E11.9 Type 2 diabetes mellitus without complications (principal); E03.9 Hypothyroidism, unspecified; Z79.899 Other long term (current) drug therapy
CPT/HCPCS: 36415; 80048; 85027